=== PATIENT | female | born 1960 | race Hispanic/Latino ===

== ENCOUNTER 2017-01-07 07:15 | Day surgery (SDC) | payer OTHER ==
[2015-08-17 10:20] VITALS: BMI 23.8
[2017-01-07] MEDS ORDERED: Lactated Ringer's 500 ML IV ONE (08:01)
[2017-01-07 08:16] VITALS: TEMP 97; O2SAT 100
[2017-01-07] MEDS ORDERED: Propofol 10 mg/ml Inj (20 ML) ONE (08:53)
[2017-01-07] MEDS ORDERED: Lidocaine 2% MPF (5 ml) Inj ONE (08:54)
[2017-01-07 10:36] VITALS: BP 110/68; PULSE 55; RESP 17
== END 2017-01-07 11:13 | disposition home or self-care (01) ==
LOC: H.ENDO 07:15
PROVIDERS: ATTEND Internal Medicine Gastroenterology
DX: Z12.11 Encounter for screening for malignant neoplasm of colon (principal); E03.9 Hypothyroidism, unspecified
CPT/HCPCS: 45378; J2704; J7120

== ENCOUNTER 2018-05-20 15:24 | Inpatient (IN) | payer MEDICAID ==
[2018-05-20 15:24] VITALS: BMI 23.8
[2018-05-20] MEDS ORDERED: Sodium Chloride 0.9% 1,000 ML IV STA (16:23)
[2018-05-20 17:19] LABS: SQUAMOUS EPITHIAL < 1 /hpf (0-5); URINE BACTERIA RARE (<OCC); URINE BILIRUBIN NEGATIVE (NEGATIVE); URINE BLOOD NEGATIVE (NEGATIVE); URINE CALCIUM OXALATE CRYSTALS OCC /hpf (<OCC); URINE CLARITY SLIGHTY-CLOUDY (Clear); URINE COLOR AMBER (YELLOW); URINE GLUCOSE (UA) NEG (NEGATIVE); URINE HYALINE CAST 0-2 /hpf (0-2); URINE LEUKOCYTE ESTERASE NEG Leu/uL (Negative); URINE PROTEIN 100 mg/dL (NEGATIVE)
[2018-05-20 17:24] LABS: ALB/GLOB RATIO 1.2 (1.0-2.1); ALBUMIN 4.3 g/dL (3.5-5.0); BLOOD UREA NITROGEN 12 mg/dl (7-17); CALCIUM 9.6 mg/dL (8.4-10.2); GFR NON-AFRICAN AMERICAN > 60; LIPASE 26 U/L (23-300)
[2018-05-20 17:26] LABS: ALT/SGPT 9 U/L (9-52); AST/SGOT 44 U/L (14-36)
[2018-05-20] MEDS ORDERED: Iohexol 240 (50 ml) PO ONE (17:33)
[2018-05-20 17:41] LABS: PARTIAL THROMBOPLASTIN TIME 26.7 Seconds (25.6-37.1)
[2018-05-20 17:42] LABS: INR 1.1; PROTHROMBIN TIME 12.4 Seconds (9.8-13.1)
[2018-05-20] MEDS ORDERED: Iohexol 240 (50 ml) ONE (17:42)
[2018-05-20 18:12] LABS: BASO % 0.4 % (0.0-2.0); EOS % 0.1 % (0.0-4.0); HEMOGLOBIN 11.8 g/dL (12.0-16.0); LYMPH # 1.1 K/uL (1.0-4.3); LYMPH % 9.5 % (20.0-40.0); MEAN CELL VOLUME 95.3 fl (81.0-99.0); MEAN CORPUSCULAR HEMOGLOBIN 31.1 pg (27.0-31.0); MEAN CORPUSCULAR HGB CONC 32.6 g/dL (33.0-37.0); MEAN PLATELET VOLUME 10.9 fl (7.2-11.7); MONO # 0.7 K/uL (0.0-0.8); MONO % 6.4 % (0.0-10.0); NEUT # 9.6 K/uL (1.8-7.0); NEUT % 83.6 % (50.0-75.0); NRBC % 0.1 % (0.0-0.0); PLATELET COUNT 193 K/uL (130-400); RED CELL DISTRIBUTION WIDTH 13.6 % (11.5-14.5); WHITE BLOOD COUNT 11.5 K/uL (4.8-10.8)
[2018-05-20 19:13] LABS: BANDS 3 % (0-2); LYMPHOCYTE 10 % (20-50); MONOCYTE 7 % (0-10); NEUTROPHIL 80 % (42-75); TOTAL CELLS COUNTED 100
[2018-05-20 19:14] LABS: ANISOCYTOSIS MODERATE; OVALOCYTES SLIGHT; PLATELET ESTIMATE NORMAL (NORMAL); POIKILOCYTOSIS SLIGHT; TOXIC GRANULATION PRESENT
[2018-05-20] MEDS ORDERED: Sodium Chloride 0.9% 50 ML IV ONE (19:57)
[2018-05-20] MEDS ORDERED: Iohexol 300 100 ML IJ ONE (19:57)
--- NOTE | 2018-05-20 21:36 | ED PDOC ---
- Laboratory Results Result Diagrams: 05/20/18 17:00 05/20/18 17:00 Lab Results: PT 12.4 Seconds (9.8-13.1) 05/20/18 17:00 INR 1.1 05/20/18 17:00 APTT 26.7 Seconds (25.6-37.1) 05/20/18 17:00 Troponin I 0.0120 ng/mL (0.00-0.120) 05/20/18 17:00 Total Bilirubin 1.2 mg/dl (0.2-1.3) 05/20/18 17:00 AST 44 U/L (14-36) H 05/20/18 17:00 ALT 9 U/L (9-52) D 05/20/18 17:00 Alkaline Phosphatase 77 U/L (38-126) 05/20/18 17:00 Total Protein 8.0 G/DL (6.3-8.2) 05/20/18 17:00 Albumin 4.3 g/dL (3.5-5.0) 05/20/18 17:00 Globulin 3.6 gm/dL (2.2-3.9) 05/20/18 17:00 Albumin/Globulin Ratio 1.2 (1.0-2.1) 05/20/18 17:00 Lipase 26 U/L (23-300) 05/20/18 17:00 Urine Color [place] (YELLOW) 05/20/18 16:57 Urine Clarity Slighty-cloudy (Clear) 05/20/18 16:57 Urine pH 5.0 (5.0-8.0) 05/20/18 16:57 Ur Specific [place] 1.026 (1.003-1.030) 05/20/18 16:57 Urine Protein 100 mg/dL (NEGATIVE) 05/20/18 16:57 Urine Glucose (UA) Neg mg/dL (NEGATIVE) 05/20/18 16:57 Urine Ketones 20 mg/dL (NEGATIVE) 05/20/18 16:57 Urine Blood Negative (NEGATIVE) 05/20/18 16:57 Urine Nitrate Negative (NEGATIVE) 05/20/18 16:57 Urine Bilirubin Negative (NEGATIVE) 05/20/18 16:57 Urine Urobilinogen 2.0 mg/dL (0.2-1.0) H 05/20/18 16:57 Ur Leukocyte Esterase Neg [place]/uL (Negative) 05/20/18 16:57 Urine RBC (Auto) 5 /hpf (0-3) H 05/20/18 16:57 Urine Microscopic WBC 3 /hpf (0-5) 05/20/18 16:57 Ur Squamous Epith Cells < 1 /hpf (0-5) 05/20/18 16:57 Calcium Oxalate Crystal Occ /hpf (<OCC) H 05/20/18 16:57 Urine Bacteria Rare (<OCC) 05/20/18 16:57 Hyaline Casts 0-2 /hpf (0-2) 05/20/18 16:57 - ECG O2 Sat by Pulse Oximetry: 100 - Radiology X-Ray: Viewed By Ri X-Ray Interpretation: No Acute Disease - Progress ED Course And Treament: Case endorsed to marketing copywriter from Dhiraj FERNANDEZ pending CT EXAM: CT Abdomen and Pelvis with IV contrast CLINICAL HISTORY: Abd pain TECHNIQUE: Axial computed tomography images of the abdomen and pelvis with oral and intravenous contrast. CONTRAST: With intravenous contrast. COMPARISON: None provided. FINDINGS: LUNG BASES: The lung bases appear clear. No pleural effusions are seen. LIVER: Unremarkable. GALLBLADDER AND BILE DUCTS: Gallbladder wall is thickened and irregular with pericholecystic fluid/edema is noted thought compatible with acute acalculous cholecystitis. No radioopaque gallstones are seen. No biliary ductal dilatation is evident. PANCREAS: Unremarkable. SPLEEN: Unremarkable. ADRENAL GLANDS: Unremarkable. KIDNEYS, URETERS, AND BLADDER: The kidneys appear within normal limits. There is no hydronephrosis or hydroureter. No urinary calculi are seen. The urinary bladder appeared normal in size and configuration. STOMACH AND BOWEL: Unremarkable appearance of the stomach. No evidence of bowel obstruction. No evidence suggesting colitis. There does appear to be some mucosal wall thickening involving all small bowel segments and especially distal ileum compatible with enteritis. APPENDIX: No evidence of acute appendicitis on CT examination. PERITONEUM: No free fluid. No free air. LYMPH NODES: No lymphadenopathy is evident. REPRODUCTIVE: Unremarkable as visualized. VASCULATURE: No evidence of abdominal aortic aneurysm. BONES: No aggressive appearing osseous lesion. No acute osseous pathology evident. IMPRESSION: 1. Findings compatible with acute acalculous cholecystitis. 2. Enteritis as above. IV zosyn dose ordered RUQ u/s ordered EXAM: US Abdomen, Right Upper Quadrant. CLINICAL HISTORY: Abdominal pain TECHNIQUE: Right upper quadrant sonography performed with image documentation. COMPARISON: None provided. FINDINGS: LIVER: The liver is normal in size and echogenicity. GALLBLADDER: The gallbladder demonstrates gallstones and wall thickening measuring 0.9 cm. There is also pericholecystic fluid. However, sonographic Fang sign is neg ative. Please correlate clinically and if indicated this could be further evaluated with HIDA scan. COMMON BILE DUCT: Common bile duct is normal in caliber measuring 0.3-0.4 cm. PANCREAS: The pancreas has a normal sonographic appearance. RIGHT KIDNEY: The right kidney has a normal sonographic appearance. MISCELLANEOUS: The visualized aorta and IVC appear unremarkable. IMPRESSION: 1. The gallbladder demonstrates gallstones and wall thickening measuring 0.9 cm. There is also pericholecystic fluid. However, sonographic Fang sign is negative. Please correlate clinically and if indicated this could be further evaluated with HIDA scan. 2. Additional and incidental findings as described, please see comments Patient evaluated by Dr. Narvaez, surgical dressing maker on-call Case discussed with Dr. Salas, Hospitalist on-call, for admission Disposition - Clinical Impression Clinical Impression: Acute cholecystitis - POA Present On Arrival: None - Disposition Disposition: Admitted as In-Patient Disposition Time: 00:00 Condition: FAIR Forms: [facility] (Kosovan)
[2018-05-20] MEDS ORDERED: Piperacillin/Tazobact 3.375 GM in Sodium Chloride 0.9% 100 ML IV ONE (21:48)
--- NOTE | 2018-05-20 21:59 | CP.PCM.CON ---
History of Present Illness - History of Present Illness History of Present Illness: 58F with past medical history of hypothyroidism presents to [facility] ED after being referred by primary physician to r/o appendicitis. Patient states pain began around Friday after having dinner. States her pain was localized to right side of abdomen, with pain being worse along right upper quadrant. On following days patient states she had poor appetite and was afraid of eating because she did not want to exacerbate her abdominal pain. She reports having a Tmax of 100.5F which was measured at home for the past two days. She reports bloating, nausea, and constipation. Denies chest pain, shortness of breath. PMH:as stated above PSH:laparoscopic tubal ligation? All: NKDA Soc Hx: Denies illicit drugs use. Denies smoking. EtOH consumption during social events. Review of Systems - Review of Systems Review of Systems: 10 pt ROS unremarkable except as stated in HPI Past Patient History - Past Medical History & Family History Past Medical History?: Yes - Past Social History Smoking Status: Never Smoked - CARDIAC Hx Cardiac Disorders: No - PULMONARY Hx Respiratory Disorders: No - NEUROLOGICAL Hx Neurological Disorder: No - HEENT Hx HEENT Problems: No - RENAL Hx Chronic Kidney Disease: No - ENDOCRINE/METABOLIC Hx Endocrine Disorders: Yes Hx Hypothyroidism: Yes - HEMATOLOGICAL/ONCOLOGICAL Hx Blood Disorders: No - INTEGUMENTARY Hx Dermatological Problems: No - MUSCULOSKELETAL/RHEUMATOLOGICAL Hx Musculoskeletal Disorders: No - GASTROINTESTINAL Hx Gastrointestinal Disorders: No - GENITOURINARY/GYNECOLOGICAL Hx Genitourinary Disorders: No - PSYCHIATRIC Hx Psychophysiologic Disorder: No Hx Emotional Abuse: No Hx Physical Abuse: No Hx Substance Use: No - SURGICAL HISTORY Hx Surgeries: Yes Hx Breast Biopsy: Yes Hx Cholecystectomy: Yes Other/Comment: ÁLVARO. EARS SURGERY - ANESTHESIA Hx Anesthesia: Yes Hx Anesthesia Reactions: No Hx Malignant Hyperthermia: No Meds Allergies/Adverse Reactions: Allergies Allergy/AdvReac Type Severity Reaction Status Date / Time No Known Allergies Allergy Verified 05/20/18 15:41 - Medications Medications: Current Medications Piperacillin Sod/Tazobactam (Sod 3.375 gm/ Sodium Chloride) 100 mls @ 100 mls/hr IV ONCE ONE; Protocol Stop: 05/20/18 22:47 Physical Exam - Constitutional Appears: No Acute Distress - Head Exam Head Exam: NORMOCEPHALIC - Eye Exam Eye Exam: EOMI, Normal appearance. absent: Scleral icterus - ENT Exam ENT Exam: Mucous Membranes Moist - Respiratory Exam Respiratory Exam: NORMAL BREATHING PATTERN - Cardiovascular Exam Cardiovascular Exam: +S1, +S2 - GI/Abdominal Exam GI & Abdominal Exam: Distended, Soft, Tenderness. absent: Firm, Guarding, Rebound Additional comments: mild distension RUQ tenderness able to palpate gallbladder - Neurological Exam Neurological exam: Alert, Oriented x3 - Psychiatric Exam Psychiatric exam: Normal Mood - Skin Skin Exam: Dry, Intact, Warm Results - Vital Signs Recent Vital Signs: Last Vital Signs Temp 99.7 F H 05/20/18 15:41 Pulse 82 05/20/18 15:41 Resp 16 05/20/18 15:41 BP 119/74 05/20/18 15:41 Pulse Ox 100 05/20/18 21:50 - Labs Result Diagrams: 05/20/18 17:00 05/20/18 17:00 Labs: Laboratory Results - last 24 hr 05/20/18 05/20/18 05/20/18 16:57 17:00 17:00 WBC 11.5 H D RBC 3.80 Hgb 11.8 L Hct 36.3 MCV 95.3 D MCH 31.1 H MCHC 32.6 L RDW 13.6 Plt Count 193 MPV 10.9 Neut % (Auto) 83.6 H Lymph % (Auto) 9.5 L [place] % (Auto) 6.4 Eos % (Auto) 0.1 Baso % (Auto) 0.4 Neut # (Auto) 9.6 H Lymph # (Auto) 1.1 [place] # (Auto) 0.7 Eos # (Auto) 0.0 Baso # (Auto) 0.0 Neutrophils % (Manual) 80 H Band Neutrophils % 3 H Lymphocytes % (Manual) 10 L Monocytes % (Manual) 7 Toxic Granulation Present Platelet Estimate Normal Poikilocytosis (manual Slight Anisocytosis (manual) Moderate Macrocytosis (manual) Slight Ovalocytes Slight PT INR APTT Sodium 138 Potassium 4.9 Chloride 97 L Carbon Dioxide 25 Anion Gap 21 H BUN 12 Creatinine 0.8 Est GFR ( Amer) > 60 Est GFR (Non-Af Amer) > 60 Random Glucose 87 Calcium 9.6 Total Bilirubin 1.2 AST 44 H ALT 9 D Alkaline Phosphatase 77 Troponin I 0.0120 Total Protein 8.0 Albumin 4.3 Globulin 3.6 Albumin/Globulin Ratio 1.2 Lipase 26 Urine Color [place] Urine Clarity Slighty-cloudy Urine pH 5.0 Ur Specific [place] 1.026 Urine Protein 100 Urine Glucose (UA) Neg Urine Ketones 20 Urine Blood Negative Urine Nitrate Negative Urine Bilirubin Negative Urine Urobilinogen 2.0 H Ur Leukocyte Esterase Neg Urine RBC (Auto) 5 H Urine Microscopic WBC 3 Ur Squamous Epith Cells < 1 Calcium Oxalate Crystal Occ H Urine Bacteria Rare Hyaline Casts 0-2 Influenza Typ A,B (EIA) Blood Type Antibody Screen BBK History Checked 05/20/18 05/20/18 05/20/18 17:00 17:00 17:00 WBC RBC Hgb Hct MCV MCH MCHC RDW Plt Count MPV Neut % (Auto) Lymph % (Auto) [place] % (Auto) Eos % (Auto) Baso % (Auto) Neut # (Auto) Lymph # (Auto) [place] # (Auto) Eos # (Auto) Baso # (Auto) Neutrophils % (Manual) Band Neutrophils % Lymphocytes % (Manual) Monocytes % (Manual) Toxic Granulation Platelet Estimate Poikilocytosis (manual Anisocytosis (manual) Macrocytosis (manual) Ovalocytes PT 12.4 INR 1.1 APTT 26.7 Sodium Potassium Chloride Carbon Dioxide Anion Gap BUN Creatinine Est GFR ( Amer) Est GFR (Non-Af Amer) Random Glucose Calcium Total Bilirubin AST ALT Alkaline Phosphatase Troponin I Total Protein Albumin Globulin Albumin/Globulin Ratio Lipase Urine Color Urine Clarity Urine pH Ur Specific [place] Urine Protein Urine Glucose (UA) Urine Ketones Urine Blood Urine Nitrate Urine Bilirubin Urine Urobilinogen Ur Leukocyte Esterase Urine RBC (Auto) Urine Microscopic WBC Ur Squamous Epith Cells Calcium Oxalate Crystal Urine Bacteria Hyaline Casts Influenza Typ A,B (EIA) Negative for flu a/b Blood Type A POSITIVE Antibody Screen Negative BBK History Checked No verified bt Assessment & Plan - Assessment and Plan (Free Text) Assessment: 58F with cholecystitis Plan: NPO IVF ABx Recommend Abd U/S AM labs Further recommendations to be made pending U/S imaging Further recs per Dr. Emmett Ceja [id number]
[2018-05-20] MEDS ORDERED: Piperacillin/Tazobact 3.375 gm Inj IVPB ONE (22:34)
[2018-05-20] MEDS: Lactated Ringer's 1,000 ML IV SCH (22:44)
--- NOTE | 2018-05-21 01:15 | CP.PCM.HP ---
<Shira Johnston - Last Filed: 05/21/18 04:07> History of Present Illness - History of Present Illness History of Present Illness: 58 yo F with medical history hypothyroidism (has been off medications x6 months due to insurance issues); admitted due to cholecystitis. Relates that since Friday (3 days prior to presentation), she started experiencing right sided abdominal pain, and had 3 bouts of NBNB vomiting from Friday 2/ night into Thursday 05/18, but thought it was because she ate too fast on Friday due to being hungry. Since Friday morning, no further vomiting, but overall feels lack of energy, decreased appetite, nausea, and right sided abd pain, more RUQ radiating to R shoulder than RLQ. States that pain is constant, sharp, 5/10, but thinks she has a high pain tolerance. Took temperature at home, states that since Friday it has ranged form 99-100.5 F. She waited for apt at [facility] today (went to get refill of her levothyroxine and to re-establish care); had fever 100.4 in office, abd tenderness on exam, and as per pt was recommended to come to ED for further eval. Denies dizziness, chest pain, difficulty breathing, dysuria, diarrhea/constipation. PMD: [facility] Past Med hx: hypothyroidism Past Surg hx: lumpectomy (benign mass as per pt 1983), laparascopic BTL 1980, right foot surgery?, cosmetic ear surg as a child Social hx: former light smoker ages [age] (1-2 cig/day), occasional alcohol on special occ, denies current drug use (admits to experimenting with various drugs in her 20s, denies drug use in past 20 yrs) Family hx: mother w/ arrythmia Allergies: nkda Meds: was on levothyroxine 50 mcg; pt states she has been off since 01/2018; as per eCW last refill x1 mo was 09/2017 In ED: Vitals: T 99.7, BP 119/74, HR 82, RR 16, O2 sat 100 on room air Labs: CBC: leukocytosis 11.5, Hgb 11.8, Hct 36.3, PLT 193 PT 12.4, INR 1.1 CMP: grossly unremarkable; AST 44 Troponin neg Lipase 26 UA: 2.0 urobili, 5 RBC, occ oxalae crystal Blood/urine cultures collected Received: Zofran 4 mg IVP x1 Zosyn 3.375 mg IV x1 1L NS bolus Pepcid 20 mg IVP Imaging: CT abd/Pelvis w/ IV contrast had findings compatible with acute acalculous cholecystitis; however abdominal u/s showed gallstones and wall thickening measuring 0.9 cm as well as pericholecystic fluid. Admitted to [facility]. Present on Admission - Present on Admission Any Indicators Present on Admission: No Review of Systems - Review of Systems All systems: reviewed and no additional remarkable complaints except - Constitutional Constitutional: Fever, Weakness. absent: Headache - Cardiovascular Cardiovascular: absent: Chest Pain - Respiratory Respiratory: absent: Cough, Dyspnea - Gastrointestinal Gastrointestinal: Abdominal Pain, Nausea, Vomiting. absent: Diarrhea - Genitourinary Genitourinary: absent: Difficulty Urinating, Dysuria - Musculoskeletal Musculoskeletal: absent: Numbness Past Patient History - Past Medical History & Family History Past Medical History?: Yes - Past Social History Smoking Status: Former Smoker Alcohol: Occasional Drugs: Denies - CARDIAC Hx Cardiac Disorders: No - PULMONARY Hx Respiratory Disorders: No - NEUROLOGICAL Hx Neurological Disorder: No - HEENT Hx HEENT Problems: No - RENAL Hx Chronic Kidney Disease: No - ENDOCRINE/METABOLIC Hx Endocrine Disorders: Yes Hx Hypothyroidism: Yes - HEMATOLOGICAL/ONCOLOGICAL Hx Blood Disorders: No - INTEGUMENTARY Hx Dermatological Problems: No - MUSCULOSKELETAL/RHEUMATOLOGICAL Hx Musculoskeletal Disorders: No - GASTROINTESTINAL Hx Gastrointestinal Disorders: No - GENITOURINARY/GYNECOLOGICAL Hx Genitourinary Disorders: No - PSYCHIATRIC Hx Psychophysiologic Disorder: No Hx Emotional Abuse: No Hx Physical Abuse: No Hx Substance Use: No - SURGICAL HISTORY Hx Surgeries: Yes Hx Breast Biopsy: Yes Other/Comment: BTL; cosmetic ear surg as a child - ANESTHESIA Hx Anesthesia: Yes Hx Anesthesia Reactions: No Hx Malignant Hyperthermia: No Meds Allergies/Adverse Reactions: Allergies Allergy/AdvReac Type Severity Reaction Status Date / Time No Known Allergies Allergy Verified 05/20/18 15:41 Physical Exam - Constitutional Appears: No Acute Distress, Younger Than Stated Age - Head Exam Head Exam: NORMAL INSPECTION - Eye Exam Eye Exam: Normal appearance. absent: Scleral icterus - ENT Exam ENT Exam: Mucous Membranes Moist - Neck Exam Neck exam: Positive for: Full Rom - Respiratory Exam Respiratory Exam: Clear to Auscultation Bilateral, NORMAL BREATHING PATTERN. absent: Respiratory Distress - Cardiovascular Exam Cardiovascular Exam: REGULAR RHYTHM, +S1, +S2 - GI/Abdominal Exam GI & Abdominal Exam: Normal Bowel Sounds, Soft, Tenderness (RUQ with minimal palpation). absent: Rigid - Extremities Exam Extremities exam: Positive for: normal inspection. Negative for: calf tenderness, pedal edema - Neurological Exam Neurological exam: Alert, Oriented x3 - Psychiatric Exam Psychiatric exam: Normal Mood - Skin Skin Exam: Dry, Warm Additional comments: multiple tattoos Results - Vital Signs Recent Vital Signs: Last Vital Signs Temp 98.9 F 05/21/18 00:29 Pulse 75 05/21/18 00:29 Resp 19 05/21/18 00:29 BP 140/65 05/21/18 00:29 Pulse Ox 100 05/21/18 00:49 - Labs Result Diagrams: 05/20/18 17:00 05/20/18 17:00 Labs: Laboratory Results - last 24 hr 05/20/18 05/20/18 05/20/18 16:57 17:00 17:00 WBC 11.5 H D RBC 3.80 Hgb 11.8 L Hct 36.3 MCV 95.3 D MCH 31.1 H MCHC 32.6 L RDW 13.6 Plt Count 193 MPV 10.9 Neut % (Auto) 83.6 H Lymph % (Auto) 9.5 L Dale % (Auto) 6.4 Eos % (Auto) 0.1 Baso % (Auto) 0.4 Neut # (Auto) 9.6 H Lymph # (Auto) 1.1 Dale # (Auto) 0.7 Eos # (Auto) 0.0 Baso # (Auto) 0.0 Neutrophils % (Manual) 80 H Band Neutrophils % 3 H Lymphocytes % (Manual) 10 L Monocytes % (Manual) 7 Toxic Granulation Present Platelet Estimate Normal Poikilocytosis (manual Slight Anisocytosis (manual) Moderate Macrocytosis (manual) Slight Ovalocytes Slight PT INR APTT Sodium 138 Potassium 4.9 Chloride 97 L Carbon Dioxide 25 Anion Gap 21 H BUN 12 Creatinine 0.8 Est GFR ( Amer) > 60 Est GFR (Non-Af Amer) > 60 Random Glucose 87 Calcium 9.6 Total Bilirubin 1.2 AST 44 H ALT 9 D Alkaline Phosphatase 77 Troponin I 0.0120 Total Protein 8.0 Albumin 4.3 Globulin 3.6 Albumin/Globulin Ratio 1.2 Lipase 26 Urine Color Katy Urine Clarity Slighty-cloudy Urine pH 5.0 Ur Specific [place] 1.026 Urine Protein 100 Urine Glucose (UA) Neg Urine Ketones 20 Urine Blood Negative Urine Nitrate Negative Urine Bilirubin Negative Urine Urobilinogen 2.0 H Ur Leukocyte Esterase Neg Urine RBC (Auto) 5 H Urine Microscopic WBC 3 Ur Squamous Epith Cells < 1 Calcium Oxalate Crystal Occ H Urine Bacteria Rare Hyaline Casts 0-2 Influenza Typ A,B (EIA) Blood Type Blood Type Confirm Antibody Screen BBK History Checked 05/20/18 05/20/18 05/20/18 17:00 17:00 17:00 WBC RBC Hgb Hct MCV MCH MCHC RDW Plt Count MPV Neut % (Auto) Lymph % (Auto) Dale % (Auto) Eos % (Auto) Baso % (Auto) Neut # (Auto) Lymph # (Auto) Dale # (Auto) Eos # (Auto) Baso # (Auto) Neutrophils % (Manual) Band Neutrophils % Lymphocytes % (Manual) Monocytes % (Manual) Toxic Granulation Platelet Estimate Poikilocytosis (manual Anisocytosis (manual) Macrocytosis (manual) Ovalocytes PT 12.4 INR 1.1 APTT 26.7 Sodium Potassium Chloride Carbon Dioxide Anion Gap BUN Creatinine Est GFR ( Amer) Est GFR (Non-Af Amer) Random Glucose Calcium Total Bilirubin AST ALT Alkaline Phosphatase Troponin I Total Protein Albumin Globulin Albumin/Globulin Ratio Lipase Urine Color Urine Clarity Urine pH Ur Specific [place] Urine Protein Urine Glucose (UA) Urine Ketones Urine Blood Urine Nitrate Urine Bilirubin Urine Urobilinogen Ur Leukocyte Esterase Urine RBC (Auto) Urine Microscopic WBC Ur Squamous Epith Cells Calcium Oxalate Crystal Urine Bacteria Hyaline Casts Influenza Typ A,B (EIA) Negative for flu a/b Blood Type A POSITIVE Blood Type Confirm Antibody Screen Negative BBK History Checked No verified bt 05/20/18 22:27 WBC RBC Hgb Hct MCV MCH MCHC RDW Plt Count MPV Neut % (Auto) Lymph % (Auto) Dale % (Auto) Eos % (Auto) Baso % (Auto) Neut # (Auto) Lymph # (Auto) Dale # (Auto) Eos # (Auto) Baso # (Auto) Neutrophils % (Manual) Band Neutrophils % Lymphocytes % (Manual) Monocytes % (Manual) Toxic Granulation Platelet Estimate Poikilocytosis (manual Anisocytosis (manual) Macrocytosis (manual) Ovalocytes PT INR APTT Sodium Potassium Chloride Carbon Dioxide Anion Gap BUN Creatinine Est GFR ( Amer) Est GFR (Non-Af Amer) Random Glucose Calcium Total Bilirubin AST ALT Alkaline Phosphatase Troponin I Total Protein Albumin Globulin Albumin/Globulin Ratio Lipase Urine Color Urine Clarity Urine pH Ur Specific [place] Urine Protein Urine Glucose (UA) Urine Ketones Urine Blood Urine Nitrate Urine Bilirubin Urine Urobilinogen Ur Leukocyte Esterase Urine RBC (Auto) Urine Microscopic WBC Ur Squamous Epith Cells Calcium Oxalate Crystal Urine Bacteria Hyaline Casts Influenza Typ A,B (EIA) Blood Type Blood Type Confirm A POSITIVE Antibody Screen BBK History Checked Assessment & Plan - Assessment and Plan (Free Text) Assessment: 58 yo F with hypothyroidism; admitted for RUQ pain secondary to acute cholecystitis. Plan: Abdominal pain, likely secondary to acute cholecystitis - Surgery consult - Dr. Christine; further recs pending/appreciated - IVF, LR @ 100 ml/hr - Zosyn 3.375 mg Q6 hrs; 1 dose in ED - Pain control scale w/ morphine, 1 mg q4hs prn mild pain, 2 mg q4hrs prn mod pain, 4 mg q6hrs prn severe pain - Zofran 4 mg IVP Q6 for nausea - CBC, CMP in am - F/u blood, urine cultures Hypothyrodism - Hold meds for now; pt has been off meds more than 6 mo Diet - NPO DVT prophylaxis - SCDs for now Pt seen/discussed w/ Dr. Salas. <Rashaun Salas - Last Filed: 05/21/18 04:48> Results - Vital Signs Recent Vital Signs: Last Vital Signs Temp 98.4 F 05/21/18 02:24 Pulse 75 05/21/18 02:24 Resp 19 05/21/18 02:29 BP 146/77 05/21/18 02:24 Pulse Ox 95 05/21/18 02:29 - Labs Result Diagrams: 05/20/18 17:00 05/20/18 17:00 Labs: Laboratory Results - last 24 hr 05/20/18 05/20/18 05/20/18 16:57 17:00 17:00 WBC 11.5 H D RBC 3.80 Hgb 11.8 L Hct 36.3 MCV 95.3 D MCH 31.1 H MCHC 32.6 L RDW 13.6 Plt Count 193 MPV 10.9 Neut % (Auto) 83.6 H Lymph % (Auto) 9.5 L Dale % (Auto) 6.4 Eos % (Auto) 0.1 Baso % (Auto) 0.4 Neut # (Auto) 9.6 H Lymph # (Auto) 1.1 Dale # (Auto) 0.7 Eos # (Auto) 0.0 Baso # (Auto) 0.0 Neutrophils % (Manual) 80 H Band Neutrophils % 3 H Lymphocytes % (Manual) 10 L Monocytes % (Manual) 7 Toxic Granulation Present Platelet Estimate Normal Poikilocytosis (manual Slight Anisocytosis (manual) Moderate Macrocytosis (manual) Slight Ovalocytes Slight PT INR APTT Sodium 138 Potassium 4.9 Chloride 97 L Carbon Dioxide 25 Anion Gap 21 H BUN 12 Creatinine 0.8 Est GFR ( Amer) > 60 Est GFR (Non-Af Amer) > 60 Random Glucose 87 Calcium 9.6 Total Bilirubin 1.2 AST 44 H ALT 9 D Alkaline Phosphatase 77 Troponin I 0.0120 Total Protein 8.0 Albumin 4.3 Globulin 3.6 Albumin/Globulin Ratio 1.2 Lipase 26 Urine Color Katy Urine Clarity Slighty-cloudy Urine pH 5.0 Ur Specific [place] 1.026 Urine Protein 100 Urine Glucose (UA) Neg Urine Ketones 20 Urine Blood Negative Urine Nitrate Negative Urine Bilirubin Negative Urine Urobilinogen 2.0 H Ur Leukocyte Esterase Neg Urine RBC (Auto) 5 H Urine Microscopic WBC 3 Ur Squamous Epith Cells < 1 Calcium Oxalate Crystal Occ H Urine Bacteria Rare Hyaline Casts 0-2 Influenza Typ A,B (EIA) Blood Type Blood Type Confirm Antibody Screen BBK History Checked 05/20/18 05/20/18 05/20/18 17:00 17:00 17:00 WBC RBC Hgb Hct MCV MCH MCHC RDW Plt Count MPV Neut % (Auto) Lymph % (Auto) Dale % (Auto) Eos % (Auto) Baso % (Auto) Neut # (Auto) Lymph # (Auto) Dale # (Auto) Eos # (Auto) Baso # (Auto) Neutrophils % (Manual) Band Neutrophils % Lymphocytes % (Manual) Monocytes % (Manual) Toxic Granulation Platelet Estimate Poikilocytosis (manual Anisocytosis (manual) Macrocytosis (manual) Ovalocytes PT 12.4 INR 1.1 APTT 26.7 Sodium Potassium Chloride Carbon Dioxide Anion Gap BUN Creatinine Est GFR ( Amer) Est GFR (Non-Af Amer) Random Glucose Calcium Total Bilirubin AST ALT Alkaline Phosphatase Troponin I Total Protein Albumin Globulin Albumin/Globulin Ratio Lipase Urine Color Urine Clarity Urine pH Ur Specific [place] Urine Protein Urine Glucose (UA) Urine Ketones Urine Blood Urine Nitrate Urine Bilirubin Urine Urobilinogen Ur Leukocyte Esterase Urine RBC (Auto) Urine Microscopic WBC Ur Squamous Epith Cells Calcium Oxalate Crystal Urine Bacteria Hyaline Casts Influenza Typ A,B (EIA) Negative for flu a/b Blood Type A POSITIVE Blood Type Confirm Antibody Screen Negative BBK History Checked No verified bt 05/20/18 22:27 WBC RBC Hgb Hct MCV MCH MCHC RDW Plt Count MPV Neut % (Auto) Lymph % (Auto) Dale % (Auto) Eos % (Auto) Baso % (Auto) Neut # (Auto) Lymph # (Auto) Dale # (Auto) Eos # (Auto) Baso # (Auto) Neutrophils % (Manual) Band Neutrophils % Lymphocytes % (Manual) Monocytes % (Manual) Toxic Granulation Platelet Estimate Poikilocytosis (manual Anisocytosis (manual) Macrocytosis (manual) Ovalocytes PT INR APTT Sodium Potassium Chloride Carbon Dioxide Anion Gap BUN Creatinine Est GFR ( Amer) Est GFR (Non-Af Amer) Random Glucose Calcium Total Bilirubin AST ALT Alkaline Phosphatase Troponin I Total Protein Albumin Globulin Albumin/Globulin Ratio Lipase Urine Color Urine Clarity Urine pH Ur Specific [place] Urine Protein Urine Glucose (UA) Urine Ketones Urine Blood Urine Nitrate Urine Bilirubin Urine Urobilinogen Ur Leukocyte Esterase Urine RBC (Auto) Urine Microscopic WBC Ur Squamous Epith Cells Calcium Oxalate Crystal Urine Bacteria Hyaline Casts Influenza Typ A,B (EIA) Blood Type Blood Type Confirm A POSITIVE Antibody Screen BBK History Checked Attending/Attestation - Attestation I have personally seen and examined this patient.: Yes I have fully participated in the care of the patient.: Yes I have reviewed all pertinent clinical information: Yes Notes (Text): 05/21/18 04:41 I saw, examined and discussed this patient with Dr Johnston. I agree with the assessment and plan outlined. This is a 58 years old female who comes with Right upper quadrant abdominal pain with nausea and a leukocytosis, with CT abdomen/pelvis showing signs of Acalcalous Cholecystitis and Enteritis The patient is started on Zosyn with pain medication and IV Fluids. Surgery is consulted. Nothing by mouth because of possible surgical intervention. Rashaun Salas MD
[2018-05-21] MEDS ORDERED: Morphine 4 MG/ML VIAL IVP PRN ×3 (02:15)
[2018-05-21] MEDS: Piperacillin/Tazobact 3.375 GM in Sodium Chloride 0.9% 100 ML IVPB SCH ×4 (03:58→21:01)
[2018-05-21 06:26] LABS: BASO % 0.5 % (0.0-2.0); EOS % 0.3 % (0.0-4.0); HEMOGLOBIN 10.6 g/dL (12.0-16.0); LYMPH # 1.4 K/uL (1.0-4.3); LYMPH % 13.9 % (20.0-40.0); MEAN CELL VOLUME 94.4 fl (81.0-99.0); MEAN CORPUSCULAR HEMOGLOBIN 31.5 pg (27.0-31.0); MEAN CORPUSCULAR HGB CONC 33.4 g/dL (33.0-37.0); MEAN PLATELET VOLUME 10.6 fl (7.2-11.7); MONO # 0.8 K/uL (0.0-0.8); MONO % 8.3 % (0.0-10.0); NEUT # 7.7 K/uL (1.8-7.0); RBC 3.37 Mil/uL (3.80-5.20); RED CELL DISTRIBUTION WIDTH 13.6 % (11.5-14.5)
[2018-05-21 06:50] LABS: ALB/GLOB RATIO 1.1 (1.0-2.1); ALBUMIN 3.6 g/dL (3.5-5.0); ALT/SGPT 18 U/L (9-52); AST/SGOT 33 U/L (14-36); BLOOD UREA NITROGEN 10 mg/dl (7-17); CALCIUM 9.2 mg/dL (8.4-10.2); GFR NON-AFRICAN AMERICAN > 60
--- NOTE | 2018-05-21 07:24 | CP.PCM.PN ---
Subjective - Date & Time of Evaluation Date of Evaluation: 05/21/18 Time of Evaluation: 07:22 - Subjective Subjective: Surgery Progress note- Dr. Christine Patient seen and examined at bedside. Pain is moderately improved. + nausea, no vomiting. denies fevers, chills, chest pain. currently NPO for cholecystectomy during this hospital stay. Objective - Vital Signs/Intake and Output Vital Signs (last 24 hours): Temp Pulse Resp BP Pulse Ox 98.4 F 75 19 146/77 95 05/21/18 02:24 05/21/18 02:24 05/21/18 02:29 05/21/18 02:24 05/21/18 02:29 - Medications Medications: Current Medications Piperacillin Sod/Tazobactam (Sod 3.375 gm/ Sodium Chloride) 100 mls @ 100 mls/hr IVPB Q6 [facility]; Protocol Last Admin: 05/21/18 03:58 Dose: 100 mls/hr Lactated Ringer's (Lactated Ringer's) 1,000 mls @ 100 mls/hr IV .Q10H [facility] Last Admin: 05/20/18 22:44 Dose: 100 mls/hr Morphine Sulfate (Morphine) 1 mg IVP Q4 PRN PRN Reason: Pain, Mild (1-3) Morphine Sulfate (Morphine) 2 mg IVP Q4 PRN PRN Reason: Pain, moderate (4-7) Morphine Sulfate (Morphine) 4 mg IVP Q6 PRN PRN Reason: Pain, severe (8-10) Ondansetron HCl (Zofran Inj) 4 mg IVP Q6 PRN PRN Reason: Nausea/Vomiting - Labs Labs: 05/21/18 05:50 05/21/18 05:50 PT 12.4 Seconds (9.8-13.1) 05/20/18 17:00 INR 1.1 05/20/18 17:00 APTT 26.7 Seconds (25.6-37.1) 05/20/18 17:00 - Constitutional Appears: Non-toxic, No Acute Distress - Head Exam Head Exam: ATRAUMATIC - Eye Exam Eye Exam: EOMI. absent: Scleral icterus - ENT Exam ENT Exam: Mucous Membranes Moist - Respiratory Exam Respiratory Exam: Clear to Ausculation Bilateral. absent: Accessory Muscle Use, Chest Wall Tenderness - Cardiovascular Exam Cardiovascular Exam: REGULAR RHYTHM. absent: Bradycardia, Tachycardia - GI/Abdominal Exam GI & Abdominal Exam: Soft, Tenderness (tenderness RUQ), Normal Bowel Sounds. absent: Distended, Firm, Guarding, Rigid - Neurological Exam Neurological Exam: Alert, Awake, Oriented x3 - Psychiatric Exam Psychiatric exam: Normal Affect - Skin Skin Exam: Intact, Warm Assessment and Plan - Assessment and Plan (Free Text) Assessment: 58F w/ acute cholecystitis Plan: - will plan for OR tomorrow in AM for cholecystectomy - Clear liquid diet today - NPO @ [place] - IVF/Abx - anti-emetic and analgesia PRN - d/[facility]
[2018-05-21] MEDS: Lactated Ringer's 1,000 ML IV SCH ×2 (09:11→12:52)
--- NOTE | 2018-05-21 09:22 | CARD ---
APPROVED REPORT Date of service: 05/20/2018 EKG Measurement Heart [id number] <Conclusion> Normal sinus rhythm with sinus arrhythmia Nonspecific ST-T changes Abnormal ECG
[2018-05-21] MEDS: Levothyroxine 50 MCG TAB PO SCH (09:53)
[2018-05-21] MEDS ORDERED: [UNRECOGNIZED DRUG - REMARK] IM ONE (10:00)
--- NOTE | 2018-05-21 10:49 | CP.PCM.PN ---
<Sultan Diane - Last Filed: 05/21/18 11:25> Subjective - Date & Time of Evaluation Date of Evaluation: 05/21/18 Time of Evaluation: 10:05 - Subjective Subjective: Patient seen and examined this morning. Reports abdominal pain is controlled with pain medications. Denies any nausea, vomiting, fever or chills. Patient denies any hx of CAD or DMII. Patient quit smoking cigarettes >30 years ago. Former light smoker ages [age] (1-2 cig/day). Patient denies any chest pain, dyspnea or dyspnea on exertion. 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 She lives in [address] floor and takes stairs w/o any chest pain or dyspnea but does feel out of shape sometimes. Objective - Vital Signs/Intake and Output Vital Signs (last 24 hours): Temp Pulse Resp BP Pulse Ox 97.6 F 76 20 131/69 96 05/21/18 09:00 05/21/18 09:00 05/21/18 09:00 05/21/18 09:00 05/21/18 09:00 - Medications Medications: Current Medications Piperacillin Sod/Tazobactam (Sod 3.375 gm/ Sodium Chloride) 100 mls @ 100 mls/hr IVPB Q6 [facility]; Protocol Last Admin: 05/21/18 09:08 Dose: 100 mls/hr Lactated Ringer's (Lactated Ringer's) 1,000 mls @ 100 mls/hr IV .Q10H [facility] Last Admin: 05/21/18 09:11 Dose: Not Given Levothyroxine Sodium (Synthroid) 50 mcg PO DAILY@0630 [facility] Last Admin: 05/21/18 09:53 Dose: 50 mcg Morphine Sulfate (Morphine) 1 mg IVP Q4 PRN PRN Reason: Pain, Mild (1-3) Morphine Sulfate (Morphine) 2 mg IVP Q4 PRN PRN Reason: Pain, moderate (4-7) Morphine Sulfate (Morphine) 4 mg IVP Q6 PRN PRN Reason: Pain, severe (8-10) Ondansetron HCl (Zofran Inj) 4 mg IVP Q6 PRN PRN Reason: Nausea/Vomiting - Labs Labs: 05/21/18 05:50 05/21/18 05:50 PT 12.4 Seconds (9.8-13.1) 05/20/18 17:00 INR 1.1 05/20/18 17:00 APTT 26.7 Seconds (25.6-37.1) 05/20/18 17:00 - Constitutional Appears: No Acute Distress, Younger Than Stated Age - Head Exam Head Exam: NORMAL INSPECTION - Eye Exam Eye Exam: Normal appearance. absent: Scleral icterus - ENT Exam ENT Exam: Mucous Membranes Moist, Normal Oropharynx - Neck Exam Neck Exam: Normal Inspection - Respiratory Exam Respiratory Exam: Clear to Ausculation Bilateral, NORMAL BREATHING PATTERN. absent: Rhonchi, Wheezes - Cardiovascular Exam Cardiovascular Exam: REGULAR RHYTHM, +S1, +S2 - GI/Abdominal Exam GI & Abdominal Exam: Soft, Normal Bowel Sounds. absent: Guarding, Rigid Additional comments: Mild RUQ and mild abdominal tenderness - Extremities Exam Extremities Exam: Normal Inspection. absent: Calf Tenderness - Neurological Exam Neurological Exam: Alert, Awake, Oriented x3 - Psychiatric Exam Psychiatric exam: Normal Affect, Normal Mood - Skin Skin Exam: Normal Color Additional comments: multiple tattoos Assessment and Plan - Assessment and Plan (Free Text) Assessment: 58 year old female with hypothyroidism; admitted for RUQ pain secondary to acute cholecystitis. Per surgery team, patient is scheduled for OR tomorrow for cholecystectomy. Plan: acute cholecystitis -Afebrile with stable vitals - Surgery consult - Dr. Christine; recs appreciated - OR tomorrow morning - c/w IVF, LR @ 100 ml/hr - Zosyn 3.375 mg Q6 hrs; 1 dose in ED - c/w Zosyn 3.375 q6hr - Pain control scale w/ morphine, 1 mg q4hs prn mild pain, 2 mg q4hrs prn mod pain, 4 mg q6hrs prn severe pain - Zofran 4 mg IVP Q6 for nausea - WBC 10.0 improved from last night. - Labs, ECG, CXR reviewed - Patient is medically optimized for surgery tomorrow - F/u blood, urine cultures Hypothyroidism -TSH 5.65 -Patient was not taking medications for few months -c/w Levothyroxine 50 mcg po daily Diet -Clear liquid diet -NPO past midnight DVT prophylaxis - SCDs for now Plan discussed with Dr. Hills <Austin Hills D - Last Filed: 05/21/18 13:08> Objective - Vital Signs/Intake and Output Vital Signs (last 24 hours): Temp Pulse Resp BP Pulse Ox 97.6 F 76 20 131/69 96 05/21/18 09:00 05/21/18 09:00 05/21/18 09:00 05/21/18 09:00 05/21/18 09:00 - Medications Medications: Current Medications Piperacillin Sod/Tazobactam (Sod 3.375 gm/ Sodium Chloride) 100 mls @ 100 mls/hr IVPB Q6 [facility]; Protocol Last Admin: 05/21/18 09:08 Dose: 100 mls/hr Lactated Ringer's (Lactated Ringer's) 1,000 mls @ 100 mls/hr IV .Q10H [facility] Last Admin: 05/21/18 12:52 Dose: 100 mls/hr Levothyroxine Sodium (Synthroid) 50 mcg PO DAILY@0630 [facility] Last Admin: 05/21/18 09:53 Dose: 50 mcg Morphine Sulfate (Morphine) 1 mg IVP Q4 PRN PRN Reason: Pain, Mild (1-3) Morphine Sulfate (Morphine) 2 mg IVP Q4 PRN PRN Reason: Pain, moderate (4-7) Morphine Sulfate (Morphine) 4 mg IVP Q6 PRN PRN Reason: Pain, severe (8-10) Ondansetron HCl (Zofran Inj) 4 mg IVP Q6 PRN PRN Reason: Nausea/Vomiting - Labs Labs: 05/21/18 05:50 05/21/18 05:50 PT 12.4 Seconds (9.8-13.1) 05/20/18 17:00 INR 1.1 05/20/18 17:00 APTT 26.7 Seconds (25.6-37.1) 05/20/18 17:00 Attending/Attestation - Attestation I have personally seen and examined this patient.: Yes I have fully participated in the care of the patient.: Yes I have reviewed all pertinent clinical information, including history, physical exam and plan: Yes Notes (Text): 05/21/18 13:06 Patient seen and examined with resident. Case discussed and agreed with assessment and plan.
--- NOTE | 2018-05-21 11:07 | US ---
Date of service: 05/20/2018 HISTORY: acalculous cholecystitis on CT COMPARISON: None. TECHNIQUE: Sonographic evaluation of the right upper quadrant of the abdomen. FINDINGS: LIVER: Measures 14.3 cm in length. Patent portal vein. Portal venous flow: Hepatopetal. Unremarkable echogenicity of the liver parenchyma. No mass. No intrahepatic bile duct dilatation. GALLBLADDER: Gallstones. Pericholecystic fluid identified. Gallbladder wall edema noted. COMMON BILE DUCT: Measures 3.4 mm. No stones. No dilatation. PANCREAS: Unremarkable as visualized. No mass. No ductal dilatation. RIGHT KIDNEY: Measures 5 x 10.2 cm in length. Normal echogenicity. No calculus, mass, or hydronephrosis. AORTA: No aneurysmal dilatation. IVC: Unremarkable. OTHER FINDINGS: None . IMPRESSION: Cholelithiasis/presumptive evidence for acute cholecystitis. Concordant findings (preliminary report) provided by [employer] [facility].
--- NOTE | 2018-05-21 12:21 | CT ---
Date of service: 05/20/2018 PROCEDURE: CT Abdomen and Pelvis with contrast HISTORY: r/o appendicitis COMPARISON: 2018. Right upper quadrant ultrasound. Summary of findings on the comparison examination:Cholelithiasis/presumptive evidence for acute cholecystitis. TECHNIQUE: Intravenous contrast dose: Radiation dose: Total exam DLP = <inf_radiation_dlp> mGy-cm. This CT exam was performed using one or more of the following dose reduction techniques: Automated exposure control, adjustment of the mA and/or kV according to patient size, and/or use of iterative reconstruction technique. FINDINGS: LOWER THORAX: Unremarkable. LIVER: Unremarkable. No gross lesion or ductal dilatation. GALLBLADDER AND BILE DUCTS: Distended gallbladder, gallbladder wall thickening, pericholecystic fluid. Gallstones identified with certainty on concurrent ultrasound although they were not seen on the present study. PANCREAS: Unremarkable. No gross lesion or ductal dilatation. SPLEEN: Unremarkable. ADRENALS: Unremarkable. No mass. KIDNEYS AND URETERS: Unremarkable. No hydronephrosis. No solid mass. VASCULATURE: Unremarkable. No aortic aneurysm. No atherosclerotic calcification or mural plaque present. BOWEL: Unremarkable. No obstruction. No gross mural thickening. APPENDIX: Normal appendix. PERITONEUM: Unremarkable. No free fluid. No free air. LYMPH NODES: Unremarkable. No enlarged lymph nodes. BLADDER: Unremarkable. REPRODUCTIVE: Unremarkable. BONES: No acute fracture. OTHER FINDINGS: None. IMPRESSION: Findings consistent with acute cholecystitis. Gallstones identified on concurrent ultrasound are not apparent on the present study. Concordant results (preliminary interpretation) provided by [facility]. Procedure Completed: 20:37. Preliminary Report: Dictated and Authenticated: 21:19. Final Interpretation: 12:17. 2018
--- NOTE | 2018-05-21 14:07 | RAD ---
Date of service: 05/21/2018 HISTORY: Admission. COMPARISON: 08/17/2015 FINDINGS: LUNGS: No active pulmonary disease. PLEURA: No significant pleural effusion identified, no pneumothorax apparent. CARDIOVASCULAR: No atherosclerotic calcification present No radiographic findings to suggest acute or significant cardiovascular disease. OSSEOUS STRUCTURES: No significant abnormalities. VISUALIZED UPPER ABDOMEN: Normal. OTHER FINDINGS: None. IMPRESSION: No active disease. No significant interval change compared to the prior examination(s).
[2018-05-22] MEDS: Piperacillin/Tazobact 3.375 GM in Sodium Chloride 0.9% 100 ML IVPB SCH ×4 (04:09→21:56)
[2018-05-22] MEDS: Lactated Ringer's 1,000 ML IV SCH ×2 (05:08→17:01)
[2018-05-22 05:58] LABS: BASO % 0.6 % (0.0-2.0); EOS # 0.1 K/uL (0.0-0.7); EOS % 0.8 % (0.0-4.0); LYMPH % 16.9 % (20.0-40.0); MEAN CELL VOLUME 96.1 fl (81.0-99.0); MEAN CORPUSCULAR HEMOGLOBIN 31.5 pg (27.0-31.0); MEAN CORPUSCULAR HGB CONC 32.8 g/dL (33.0-37.0); MEAN PLATELET VOLUME 11.1 fl (7.2-11.7); MONO # 0.5 K/uL (0.0-0.8); MONO % 8.5 % (0.0-10.0); NEUT # 4.4 K/uL (1.8-7.0); NEUT % 73.2 % (50.0-75.0); RBC 3.17 Mil/uL (3.80-5.20); RED CELL DISTRIBUTION WIDTH 13.4 % (11.5-14.5)
[2018-05-22 06:24] LABS: ALB/GLOB RATIO 1.1 (1.0-2.1); ALBUMIN 3.3 g/dL (3.5-5.0); ALT/SGPT 16 U/L (9-52); AST/SGOT 26 U/L (14-36); BLOOD UREA NITROGEN 5 mg/dl (7-17); CALCIUM 8.9 mg/dL (8.4-10.2); GFR NON-AFRICAN AMERICAN > 60
[2018-05-22] MEDS: Levothyroxine 50 MCG TAB PO SCH (07:09)
[2018-05-22] MEDS ORDERED: Propofol 10 mg/ml Inj (20 ML) ONE (07:25)
[2018-05-22] MEDS ORDERED: Succinylcholine Chloride 20 mg/ml Syr (5 ml) IV ONE (07:25)
[2018-05-22] MEDS ORDERED: Rocuronium 10 mg/ml (5 ml) ONE (07:25)
[2018-05-22] MEDS ORDERED: Midazolam 2 MG/2 ML VIAL ONE (07:25)
[2018-05-22] MEDS ORDERED: Sevoflurane - Inhalation Anesthetic Liq (250 ml) ONE (07:30)
[2018-05-22] MEDS ORDERED: Lactated Ringer's 1,000 ML IV ONE (08:20)
[2018-05-22] MEDS ORDERED: ePHEDrine 50 mg/ml Inj ONE (08:23)
[2018-05-22] MEDS ORDERED: Lidocaine 1% Inj (20ml) ONE (08:34)
[2018-05-22] MEDS ORDERED: Bupivacaine 0.5% Inj(30mL) ONE (08:34)
[2018-05-22] MEDS ORDERED: Lidocaine 1% Inj (20ml) IJ ONE (08:45)
[2018-05-22] MEDS ORDERED: Bupivacaine 0.5% Inj(30mL) IJ ONE (08:45)
[2018-05-22] MEDS ORDERED: Neostigmine 1:1000 (1 mg/ml) Inj ONE (09:27)
--- NOTE | 2018-05-22 10:23 | PCM.SURG1 ---
Surgeon's Initial Post Op Note - Surgeon's Notes Surgeon: Dr. Christine Computer Technology Trainer: Dr. Narvaez PGY3, Dr. Wallace PGY2 Pre-Operative Diagnosis: acute cholecystitis Operative Findings: acute on chronic cholecystitis Post-Operative Diagnosis: same Operation Performed: laparoscopic cholecystectomy Specimen/Specimens Removed: gallbladder Estimated Blood Loss: EBL {In ML}: 10 Blood Products Given: N/A Drains Used: No Drains Post-Op Condition: Good Date of Surgery/Procedure: 05/22/18 Time of Surgery/Procedure: 10:24
[2018-05-22] MEDS ORDERED: Morphine 4 MG/ML VIAL ONE ×2 (10:59→11:15)
--- NOTE | 2018-05-22 13:04 | CP.PCM.PN ---
<Sultan Diane - Last Filed: 05/22/18 13:00> Subjective - Date & Time of Evaluation Date of Evaluation: 05/22/18 Time of Evaluation: 12:55 - Subjective Subjective: Patient seen and examined at bedside this afternoon, s/p johana huber this morning. Vitals stable, afebrile She feels sleepy but denies any nausea, vomiting, chest pain or dyspnea Has not started eating yet. Objective - Vital Signs/Intake and Output Vital Signs (last 24 hours): Temp Pulse Resp BP Pulse Ox 98 F 77 18 134/72 96 05/22/18 12:35 05/22/18 12:35 05/22/18 12:35 05/22/18 12:35 05/22/18 12:35 Intake and Output: 05/22/18 05/22/18 06:59 18:59 Intake Total 1000 Balance 1000 - Medications Medications: Current Medications Piperacillin Sod/Tazobactam (Sod 3.375 gm/ Sodium Chloride) 100 mls @ 100 mls/hr IVPB Q6 [facility]; Protocol Last Admin: 05/22/18 04:09 Dose: 100 mls/hr Lactated Ringer's (Lactated Ringer's) 1,000 mls @ 100 mls/hr IV .Q10H [facility] Last Admin: 05/22/18 05:08 Dose: Not Given Levothyroxine Sodium (Synthroid) 50 mcg PO DAILY@0630 [facility] Last Admin: 05/22/18 07:09 Dose: Not Given Morphine Sulfate (Morphine) 1 mg IVP Q4 PRN PRN Reason: Pain, Mild (1-3) Morphine Sulfate (Morphine) 2 mg IVP Q4 PRN PRN Reason: Pain, moderate (4-7) Morphine Sulfate (Morphine) 4 mg IVP Q6 PRN PRN Reason: Pain, severe (8-10) Ondansetron HCl (Zofran Inj) 4 mg IVP Q6 PRN PRN Reason: Nausea/Vomiting - Labs Labs: 05/22/18 05:25 05/22/18 05:25 PT 12.4 Seconds (9.8-13.1) 05/20/18 17:00 INR 1.1 05/20/18 17:00 APTT 26.7 Seconds (25.6-37.1) 05/20/18 17:00 - Constitutional Appears: No Acute Distress, Younger Than Stated Age - Head Exam Head Exam: NORMAL INSPECTION - Eye Exam Eye Exam: Normal appearance - ENT Exam ENT Exam: Mucous Membranes Moist, Normal Oropharynx - Respiratory Exam Respiratory Exam: Clear to Ausculation Bilateral, NORMAL BREATHING PATTERN. absent: Rhonchi, Wheezes - Cardiovascular Exam Cardiovascular Exam: REGULAR RHYTHM, +S1, +S2 - GI/Abdominal Exam GI & Abdominal Exam: Soft, Normal Bowel Sounds - Extremities Exam Extremities Exam: Normal Inspection. absent: Calf Tenderness - Neurological Exam Neurological Exam: Alert, Awake - Psychiatric Exam Psychiatric exam: Normal Affect, Normal Mood - Skin Skin Exam: Normal Color Assessment and Plan - Assessment and Plan (Free Text) Assessment: 58 year old female with hypothyroidism; admitted for RUQ pain secondary to acute cholecystitis, s/p laparascopic cholecystectomy this morning, doing well. Plan: Acute cholecystitis s/p lap cholecystectomy this morning -Afebrile with stable vitals -Surgery consult - Dr. Christine; recs appreciated -c/w IVF, LR @ 100 ml/hr -c/w Zosyn 3.375 q6hr -Pain control scale w/ morphine, 1 mg q4hs prn mild pain, 2 mg q4hrs prn mod pain, 4 mg q6hrs prn severe pain -Zofran 4 mg IVP Q6 for nausea - Advanced diet -Incentive spirometer Hypothyroidism -TSH 5.65 -Patient was not taking medications for few months -c/w Levothyroxine 50 mcg po daily Diet -regular diet DVT prophylaxis -SCDs -Encourage ambulation Plan discussed with Dr. Hills <Austin Hills - Last Filed: 05/22/18 16:03> Objective - Vital Signs/Intake and Output Vital Signs (last 24 hours): Temp Pulse Resp BP Pulse Ox 97.6 F 77 20 131/68 95 05/22/18 15:34 05/22/18 15:34 05/22/18 15:34 05/22/18 15:34 05/22/18 15:34 Intake and Output: 05/22/18 05/22/18 06:59 18:59 Intake Total 1000 Balance 1000 - Medications Medications: Current Medications Piperacillin Sod/Tazobactam (Sod 3.375 gm/ Sodium Chloride) 100 mls @ 100 mls/hr IVPB Q6 [facility]; Protocol Last Admin: 05/22/18 13:43 Dose: Not Given Lactated Ringer's (Lactated Ringer's) 1,000 mls @ 100 mls/hr IV .Q10H [facility] Last Admin: 05/22/18 05:08 Dose: Not Given Levothyroxine Sodium (Synthroid) 50 mcg PO DAILY@0630 [facility] Last Admin: 05/22/18 07:09 Dose: Not Given Morphine Sulfate (Morphine) 1 mg IVP Q4 PRN PRN Reason: Pain, Mild (1-3) Morphine Sulfate (Morphine) 2 mg IVP Q4 PRN PRN Reason: Pain, moderate (4-7) Morphine Sulfate (Morphine) 4 mg IVP Q6 PRN PRN Reason: Pain, severe (8-10) Ondansetron HCl (Zofran Inj) 4 mg IVP Q6 PRN PRN Reason: Nausea/Vomiting - Labs Labs: 05/22/18 05:25 05/22/18 05:25 PT 12.4 Seconds (9.8-13.1) 05/20/18 17:00 INR 1.1 05/20/18 17:00 APTT 26.7 Seconds (25.6-37.1) 05/20/18 17:00 Attending/Attestation - Attestation I have personally seen and examined this patient.: Yes I have fully participated in the care of the patient.: Yes I have reviewed all pertinent clinical information, including history, physical exam and plan: Yes Notes (Text): 05/22/18 16:01 Patient seen and examined with resident. Case discussed and agreed with assessment and plan. Had just had cholecystectomy and still felt groggy.
[2018-05-23] MEDS: Lactated Ringer's 1,000 ML IV SCH ×4 (00:45→16:58)
[2018-05-23] MEDS: Piperacillin/Tazobact 3.375 GM in Sodium Chloride 0.9% 100 ML IVPB SCH ×4 (04:29→22:01)
[2018-05-23] MEDS: Levothyroxine 50 MCG TAB PO SCH (06:51)
[2018-05-23 07:30] LABS: BASO % 0.3 % (0.0-2.0); HEMOGLOBIN 10.4 g/dL (12.0-16.0); LYMPH # 0.8 K/uL (1.0-4.3); LYMPH % 8.5 % (20.0-40.0); MEAN CELL VOLUME 93.8 fl (81.0-99.0); MEAN CORPUSCULAR HEMOGLOBIN 31.9 pg (27.0-31.0); MEAN PLATELET VOLUME 11.5 fl (7.2-11.7); MONO # 0.7 K/uL (0.0-0.8); MONO % 7.6 % (0.0-10.0); NEUT % 83.6 % (50.0-75.0); NRBC % 0.1 % (0.0-0.0); RBC 3.25 Mil/uL (3.80-5.20); WHITE BLOOD COUNT 9.6 K/uL (4.8-10.8)
[2018-05-23 07:47] LABS: BLOOD UREA NITROGEN 3 mg/dl (7-17); CALCIUM 8.7 mg/dL (8.4-10.2); GFR NON-AFRICAN AMERICAN > 60
--- NOTE | 2018-05-23 10:58 | CP.PCM.PN ---
<[place] - Last Filed: 05/23/18 10:54> Subjective - Date & Time of Evaluation Date of Evaluation: 05/23/18 Time of Evaluation: 09:20 - Subjective Subjective: Patient seen and examined this morning, s/p Jevon Monique, Pod 1 Overnight events reviewed, patient had fever of 102.4 and blood cx x 2 sent. Patient is tolerating PO. Denies any nausea, vomiting, dysuria, abdominal pain or dizziness. +flatus but denies any BM. Denies any chest pain, dyspnea, cough or calf pain Objective - Vital Signs/Intake and Output Vital Signs (last 24 hours): Temp Pulse Resp BP Pulse Ox 100.3 F H 95 H 20 129/71 94 L 05/23/18 08:24 05/23/18 08:24 05/23/18 08:24 05/23/18 08:24 05/23/18 08:24 - Medications Medications: Current Medications Piperacillin Sod/Tazobactam (Sod 3.375 gm/ Sodium Chloride) 100 mls @ 100 mls/hr IVPB Q6 [facility]; Protocol Last Admin: 05/23/18 09:53 Dose: 100 mls/hr Lactated Ringer's (Lactated Ringer's) 1,000 mls @ 100 mls/hr IV .Q10H [facility] Last Admin: 05/23/18 01:31 Dose: 100 mls/hr Levothyroxine Sodium (Synthroid) 50 mcg PO DAILY@0630 [facility] Last Admin: 05/23/18 06:51 Dose: 50 mcg Morphine Sulfate (Morphine) 1 mg IVP Q4 PRN PRN Reason: Pain, Mild (1-3) Morphine Sulfate (Morphine) 2 mg IVP Q4 PRN PRN Reason: Pain, moderate (4-7) Last Admin: 05/23/18 00:13 Dose: 2 mg Morphine Sulfate (Morphine) 4 mg IVP Q6 PRN PRN Reason: Pain, severe (8-10) Ondansetron HCl (Zofran Inj) 4 mg IVP Q6 PRN PRN Reason: Nausea/Vomiting Last Admin: 05/22/18 21:59 Dose: 4 mg - Labs Labs: 05/23/18 05:30 05/23/18 05:30 PT 12.4 Seconds (9.8-13.1) 05/20/18 17:00 INR 1.1 05/20/18 17:00 APTT 26.7 Seconds (25.6-37.1) 05/20/18 17:00 - Additional Findings Additional findings: - Constitutional Appears: No Acute Distress, Younger Than Stated Age - Head Exam Head Exam: NORMAL INSPECTION - Eye Exam Eye Exam: Normal appearance. absent: Scleral icterus - ENT Exam ENT Exam: Mucous Membranes Moist, Normal Oropharynx - Neck Exam Neck Exam: Normal Inspection - Respiratory Exam Respiratory Exam: Clear to Ausculation Bilateral, NORMAL BREATHING PATTERN. absent: Rhonchi, Wheezes - Cardiovascular Exam Cardiovascular Exam: REGULAR RHYTHM, +S1, +S2 - GI/Abdominal Exam GI & Abdominal Exam: Soft, Normal Bowel Sounds. absent: Guarding, Rigid Additional comments: +erythema surrounding umbilical incision. No oozing or discharge. RUQ incision has minimal erythema. - Extremities Exam Extremities Exam: Normal Inspection. absent: Calf Tenderness - Neurological Exam Neurological Exam: Alert, Awake, Oriented x3 - Psychiatric Exam Psychiatric exam: Normal Affect, Normal Mood - Skin Skin Exam: Normal Color Additional comments: multiple tattoos Assessment and Plan - Assessment and Plan (Free Text) Assessment: Assessment: 58 year old female with hypothyroidism; admitted for RUQ pain secondary to acute cholecystitis, s/p laparascopic cholecystectomy, POD1, had fever of 102.4 F this morning. Plan: Acute cholecystitis s/p lap cholecystectomy POD 1 -Surgery consult - Dr. Christine; recs appreciated -Fever of 102.4 F this morning at 4 am, otherwise stable vitals -wbc 9.6 with left shift -c/w IVF, LR @ 100 ml/hr -c/w Zosyn 3.375 q6hr -Pain control scale w/ morphine, 1 mg q4hs prn mild pain, 2 mg q4hrs prn mod pain, 4 mg q6hrs prn severe pain -Zofran 4 mg IVP Q6 for nausea -Regular diet -Incentive spirometer -f/u blood cx, AM labs. Hypothyroidism -TSH 5.65 -Patient was not taking medications for few months -c/w Levothyroxine 50 mcg po daily Diet -regular diet DVT prophylaxis -SCDs -Encourage ambulation Plan discussed with Dr. Hills <Austin Hills D - Last Filed: 05/23/18 13:33> Objective - Vital Signs/Intake and Output Vital Signs (last 24 hours): Temp Pulse Resp BP Pulse Ox 98.7 F 79 20 132/73 98 05/23/18 12:15 05/23/18 12:15 05/23/18 12:15 05/23/18 12:15 05/23/18 12:15 - Medications Medications: Current Medications Piperacillin Sod/Tazobactam (Sod 3.375 gm/ Sodium Chloride) 100 mls @ 100 mls/hr IVPB Q6 [facility]; Protocol Last Admin: 05/23/18 09:53 Dose: 100 mls/hr Lactated Ringer's (Lactated Ringer's) 1,000 mls @ 100 mls/hr IV .Q10H [facility] Last Admin: 05/23/18 01:31 Dose: 100 mls/hr Levothyroxine Sodium (Synthroid) 50 mcg PO DAILY@0630 [facility] Last Admin: 05/23/18 06:51 Dose: 50 mcg Morphine Sulfate (Morphine) 1 mg IVP Q4 PRN PRN Reason: Pain, Mild (1-3) Morphine Sulfate (Morphine) 2 mg IVP Q4 PRN PRN Reason: Pain, moderate (4-7) Last Admin: 05/23/18 00:13 Dose: 2 mg Morphine Sulfate (Morphine) 4 mg IVP Q6 PRN PRN Reason: Pain, severe (8-10) Ondansetron HCl (Zofran Inj) 4 mg IVP Q6 PRN PRN Reason: Nausea/Vomiting Last Admin: 05/22/18 21:59 Dose: 4 mg - Labs Labs: 05/23/18 05:30 05/23/18 05:30 PT 12.4 Seconds (9.8-13.1) 05/20/18 17:00 INR 1.1 05/20/18 17:00 APTT 26.7 Seconds (25.6-37.1) 05/20/18 17:00 Attending/Attestation - Attestation I have personally seen and examined this patient.: Yes I have fully participated in the care of the patient.: Yes I have reviewed all pertinent clinical information, including history, physical exam and plan: Yes Notes (Text): 05/23/18 13:32 Patient seen and examined. Case discussed and agreed with assessment and plan. Patient is 1st day post op and had fever earlier this morning. Will discharge patient tomorrow if she remained afebrile.
[2018-05-23 16:04] LABS: ALBUMIN 3.3 g/dL (3.5-5.0); BILIRUBIN,DIRECT 0.1 mg/ml (0.0-0.4)
--- NOTE | 2018-05-23 16:48 | CP.PCM.PN ---
Subjective - Date & Time of Evaluation Date of Evaluation: 05/23/18 Time of Evaluation: 15:30 - Subjective Subjective: Patient seen and examined. Tmax of 102.4F. Tolerating food. Incision site tenderness. Objective - Vital Signs/Intake and Output Vital Signs (last 24 hours): Temp Pulse Resp BP Pulse Ox 98.7 F 83 19 131/71 94 L 05/23/18 16:37 05/23/18 16:37 05/23/18 16:37 05/23/18 16:37 05/23/18 16:37 - Medications Medications: Current Medications Piperacillin Sod/Tazobactam (Sod 3.375 gm/ Sodium Chloride) 100 mls @ 100 mls/hr IVPB Q6 [facility]; Protocol Last Admin: 05/23/18 09:53 Dose: 100 mls/hr Lactated Ringer's (Lactated Ringer's) 1,000 mls @ 100 mls/hr IV .Q10H [facility] Last Admin: 05/23/18 01:31 Dose: 100 mls/hr Levothyroxine Sodium (Synthroid) 50 mcg PO DAILY@0630 [facility] Last Admin: 05/23/18 06:51 Dose: 50 mcg Morphine Sulfate (Morphine) 1 mg IVP Q4 PRN PRN Reason: Pain, Mild (1-3) Morphine Sulfate (Morphine) 2 mg IVP Q4 PRN PRN Reason: Pain, moderate (4-7) Last Admin: 05/23/18 00:13 Dose: 2 mg Morphine Sulfate (Morphine) 4 mg IVP Q6 PRN PRN Reason: Pain, severe (8-10) Ondansetron HCl (Zofran Inj) 4 mg IVP Q6 PRN PRN Reason: Nausea/Vomiting Last Admin: 05/22/18 21:59 Dose: 4 mg - Labs Labs: 05/23/18 05:30 05/23/18 05:30 PT 12.4 Seconds (9.8-13.1) 05/20/18 17:00 INR 1.1 05/20/18 17:00 APTT 26.7 Seconds (25.6-37.1) 05/20/18 17:00 - Head Exam Head Exam: NORMOCEPHALIC - Eye Exam Eye Exam: EOMI, Normal appearance Pupil Exam: NORMAL ACCOMODATION - ENT Exam ENT Exam: Mucous Membranes Moist - Respiratory Exam Respiratory Exam: NORMAL BREATHING PATTERN - Cardiovascular Exam Cardiovascular Exam: +S1, +S2 - GI/Abdominal Exam GI & Abdominal Exam: Soft, Tenderness. absent: Firm, Guarding, Rigid, Rebound - Neurological Exam Neurological Exam: Alert, Awake, Oriented x3 - Skin Skin Exam: Dry, Intact, Warm Assessment and Plan - Assessment and Plan (Free Text) Assessment: 58F s/p laparoscopic cholecystectomy POD 1 Plan: -Regular diet -ABx -F/u Blood Cx -Encourage ambulation -Encourage incentive spirometer -DVT ppx -Further recs per Dr. Emmett Ceja PGY3
[2018-05-24] MEDS: Piperacillin/Tazobact 3.375 GM in Sodium Chloride 0.9% 100 ML IVPB SCH ×4 (04:16→21:58)
[2018-05-24 06:55] LABS: BASO % 0.5 % (0.0-2.0); EOS % 0.5 % (0.0-4.0); HEMOGLOBIN 9.3 g/dL (12.0-16.0); LYMPH % 13.4 % (20.0-40.0); MEAN CELL VOLUME 94.2 fl (81.0-99.0); MEAN CORPUSCULAR HEMOGLOBIN 31.4 pg (27.0-31.0); MEAN CORPUSCULAR HGB CONC 33.4 g/dL (33.0-37.0); MEAN PLATELET VOLUME 11.5 fl (7.2-11.7); MONO # 0.7 K/uL (0.0-0.8); MONO % 9.8 % (0.0-10.0); NEUT # 5.6 K/uL (1.8-7.0); NEUT % 75.8 % (50.0-75.0); RBC 2.96 Mil/uL (3.80-5.20); WHITE BLOOD COUNT 7.4 K/uL (4.8-10.8)
[2018-05-24 07:02] LABS: BLOOD UREA NITROGEN 4 mg/dl (7-17); CALCIUM 8.6 mg/dL (8.4-10.2); GFR NON-AFRICAN AMERICAN > 60
[2018-05-24] MEDS: Levothyroxine 50 MCG TAB PO SCH (07:40)
[2018-05-24] MEDS ORDERED: Potassium Chloride 20 mEq/15 ml LIQ UD PO ONE (08:31)
--- NOTE | 2018-05-24 09:34 | CP.PCM.PN ---
Subjective - Date & Time of Evaluation Date of Evaluation: 05/24/18 Time of Evaluation: 09:32 - Subjective Subjective: Surgery Progress note- Dr. Christine Patient seen and examined at bedside. patient had fever of 101.5 overnight. since has resolved currently 98.9. Abd pain improving. + nausea, no vomiting. Tolerating regular diet. + OOB and ambulating. using Incentive spirometer pulling < 800cc. Objective - Vital Signs/Intake and Output Vital Signs (last 24 hours): Temp Pulse Resp BP Pulse Ox 99.2 F 84 20 153/75 H 94 L 05/24/18 08:29 05/24/18 08:29 05/24/18 08:29 05/24/18 08:29 05/24/18 08:29 - Medications Medications: Current Medications Acetaminophen (Tylenol 325mg Tab) 650 mg PO Q6 PRN PRN Reason: Pain, Mild (1-3) Last Admin: 05/23/18 16:59 Dose: 650 mg Piperacillin Sod/Tazobactam (Sod 3.375 gm/ Sodium Chloride) 100 mls @ 100 mls/hr IVPB Q6 [facility]; Protocol Last Admin: 05/24/18 09:03 Dose: 100 mls/hr Levothyroxine Sodium (Synthroid) 50 mcg PO DAILY@0630 [facility] Last Admin: 05/24/18 07:40 Dose: 50 mcg - Labs Labs: 05/24/18 05:30 05/24/18 05:30 PT 12.4 Seconds (9.8-13.1) 05/20/18 17:00 INR 1.1 05/20/18 17:00 APTT 26.7 Seconds (25.6-37.1) 05/20/18 17:00 - Constitutional Appears: Non-toxic, No Acute Distress - Head Exam Head Exam: ATRAUMATIC - Eye Exam Eye Exam: EOMI. absent: Scleral icterus - ENT Exam ENT Exam: Mucous Membranes Moist - Respiratory Exam Respiratory Exam: NORMAL BREATHING PATTERN. absent: Accessory Muscle Use, Respiratory Distress - Cardiovascular Exam Cardiovascular Exam: REGULAR RHYTHM. absent: Bradycardia, Tachycardia - GI/Abdominal Exam GI & Abdominal Exam: Soft, Tenderness (minimal tenderness to palpation around incision). absent: Distended, Firm, Guarding, Rigid - Extremities Exam Extremities Exam: absent: Calf Tenderness - Neurological Exam Neurological Exam: Alert, Awake, Oriented x3 - Psychiatric Exam Psychiatric exam: Normal Affect - Skin Skin Exam: Intact, Warm Assessment and Plan - Assessment and Plan (Free Text) Assessment: 58F s/p lap ceclie POD#2 Plan: - aggressive Incentive spirometer; and OOB and ambulating - f/u blood cultures - diet as tolerated - c/w IV Abx - will continue to monitor - further recs per Dr. Christine surgical attending PGY2
--- NOTE | 2018-05-24 11:20 | RAD ---
Date of service: 05/24/2018 HISTORY: fever COMPARISON: Chest radiograph dated 05/21/2018 TECHNIQUE: Chest PA and lateral FINDINGS: LUNGS: Pulmonary vascular congestion. Bibasilar atelectasis. New left lower lobe infiltrate. PLEURA: Small bilateral pleural effusions. No pneumothorax apparent. CARDIOVASCULAR: Aortic atherosclerotic calcifications. Cardiomediastinal silhouette stably prominent OSSEOUS STRUCTURES: No significant abnormalities. VISUALIZED UPPER ABDOMEN: Normal. OTHER FINDINGS: None. IMPRESSION: Bibasilar atelectasis with small bilateral pleural effusions. New left lower lobe infiltrate.
[2018-05-24 12:17] LABS: URINE BILIRUBIN NEGATIVE (NEGATIVE); URINE BLOOD MODERATE (NEGATIVE); URINE CLARITY CLEAR (Clear); URINE COLOR STRAW (YELLOW); URINE GLUCOSE (UA) NEG (NEGATIVE); URINE LEUKOCYTE ESTERASE NEG Leu/uL (Negative); URINE PROTEIN NEGATIVE (NEGATIVE); URINE UROBILINOGEN 0.2-1.0 mg/dL (0.2-1.0)
--- NOTE | 2018-05-24 16:20 | CP.PCM.PN ---
<Jaswant Cisneros - Last Filed: 05/24/18 16:50> Subjective - Date & Time of Evaluation Date of Evaluation: 05/24/18 Time of Evaluation: 16:20 - Subjective Subjective: 58 YO F s/p Lap/cecile seen at bedside had a 101.5 fever overnight. Has been afebrile throughout the day. She has had a non productive cough over the last 3 days. - She has been using her insentive spirometer. She had a large bowl movement after walking around the floor, which was semisolid in consistency. Denies any blood. - Denies any fever chills, nausea, or vomiting. Objective - Vital Signs/Intake and Output Vital Signs (last 24 hours): Temp Pulse Resp BP Pulse Ox 99.2 F 84 20 153/75 H 94 L 05/24/18 08:29 05/24/18 08:29 05/24/18 08:29 05/24/18 08:29 05/24/18 08:29 - Medications Medications: Current Medications Acetaminophen (Tylenol 325mg Tab) 650 mg PO Q6 PRN PRN Reason: Pain, Mild (1-3) Last Admin: 05/23/18 16:59 Dose: 650 mg Piperacillin Sod/Tazobactam (Sod 3.375 gm/ Sodium Chloride) 100 mls @ 100 mls/hr IVPB Q6 [facility]; Protocol Last Admin: 05/24/18 09:03 Dose: 100 mls/hr Levothyroxine Sodium (Synthroid) 50 mcg PO DAILY@0630 [facility] Last Admin: 05/24/18 07:40 Dose: 50 mcg - Labs Labs: 05/24/18 05:30 05/24/18 05:30 PT 12.4 Seconds (9.8-13.1) 05/20/18 17:00 INR 1.1 05/20/18 17:00 APTT 26.7 Seconds (25.6-37.1) 05/20/18 17:00 Assessment and Plan - Assessment and Plan (Free Text) Assessment: 58 year old female with hypothyroidism; admitted for RUQ pain secondary to acute cholecystitis, s/p laparascopic cholecystectomy, POD2, had fever of 101.5 F this morning. Plan: Acute cholecystitis s/p lap cholecystectomy POD 2 -Surgery consult - Dr. Christine; recs appreciated -Fever of 101.5F last night, otherwise stable vitals -wbc 7.4 -c/w Zosyn 3.375 q6hr -Pain control scale w/ morphine, 1 mg q4hs prn mild pain, 2 mg q4hrs prn mod pain, 4 mg q6hrs prn severe pain -Zofran 4 mg IVP Q6 for nausea -Regular diet - Chest Xray reading -Incentive spirometer Cough - Fever of 101.5F last night, otherwise stable vitals -wbc 7.4 -c/w Zosyn 3.375 q6hr - Bibasilar atelectasis with small bilateral pleural effusions. New left lower lobe lower lobe infilterate - Continue to monitor vitals Hypothyroidism -TSH 5.65 -Patient was not taking medications for few months -c/w Levothyroxine 50 mcg po daily Diet -regular diet DVT prophylaxis -SCDs -Encourage ambulation Plan discussed with Dr. Hills <[place] - Last Filed: 05/24/18 16:56> Objective - Vital Signs/Intake and Output Vital Signs (last 24 hours): Temp Pulse Resp BP Pulse Ox 98.7 F 86 19 148/71 95 05/24/18 16:34 05/24/18 16:34 05/24/18 16:34 05/24/18 16:34 05/24/18 16:34 - Medications Medications: Current Medications Acetaminophen (Tylenol 325mg Tab) 650 mg PO Q6 PRN PRN Reason: Pain, Mild (1-3) Last Admin: 05/23/18 16:59 Dose: 650 mg Piperacillin Sod/Tazobactam (Sod 3.375 gm/ Sodium Chloride) 100 mls @ 100 mls/hr IVPB Q6 [facility]; Protocol Last Admin: 05/24/18 09:03 Dose: 100 mls/hr Levothyroxine Sodium (Synthroid) 50 mcg PO DAILY@0630 [facility] Last Admin: 05/24/18 07:40 Dose: 50 mcg - Labs Labs: 05/24/18 05:30 05/24/18 05:30 PT 12.4 Seconds (9.8-13.1) 05/20/18 17:00 INR 1.1 05/20/18 17:00 APTT 26.7 Seconds (25.6-37.1) 05/20/18 17:00 Attending/Attestation - Attestation I have personally seen and examined this patient.: Yes I have fully participated in the care of the patient.: Yes I have reviewed all pertinent clinical information, including history, physical exam and plan: Yes Notes (Text): 05/24/18 16:53 Patient seen and examined with resident. Case discussed and agreed with assessment and plans. Patient seen most of the time lying in bed claiming she still felt sore and weak. Pain felt more on the surgical site and much less than prior to surgery. Patient advised to continue use of spirometry and to move around.
[2018-05-25 00:36] VITALS: RESP 20
[2018-05-25] MEDS: Piperacillin/Tazobact 3.375 GM in Sodium Chloride 0.9% 100 ML IVPB SCH ×2 (04:30→09:18)
[2018-05-25 06:19] LABS: BASO % 0.2 % (0.0-2.0); EOS # 0.1 K/uL (0.0-0.7); EOS % 0.8 % (0.0-4.0); HEMOGLOBIN 10.5 g/dL (12.0-16.0); LYMPH # 1.1 K/uL (1.0-4.3); LYMPH % 16.1 % (20.0-40.0); MEAN CELL VOLUME 94.7 fl (81.0-99.0); MEAN CORPUSCULAR HEMOGLOBIN 31.6 pg (27.0-31.0); MEAN CORPUSCULAR HGB CONC 33.4 g/dL (33.0-37.0); MEAN PLATELET VOLUME 11.2 fl (7.2-11.7); MONO # 0.6 K/uL (0.0-0.8); MONO % 8.5 % (0.0-10.0); NEUT # 5.1 K/uL (1.8-7.0); NEUT % 74.4 % (50.0-75.0); RBC 3.33 Mil/uL (3.80-5.20); RED CELL DISTRIBUTION WIDTH 13.1 % (11.5-14.5); WHITE BLOOD COUNT 6.8 K/uL (4.8-10.8)
[2018-05-25 06:28] LABS: ALBUMIN 3.5 g/dL (3.5-5.0); ALT/SGPT 37 U/L (9-52); AST/SGOT 43 U/L (14-36); BLOOD UREA NITROGEN 3 mg/dl (7-17); CALCIUM 9.4 mg/dL (8.4-10.2); GFR NON-AFRICAN AMERICAN > 60
[2018-05-25] MEDS: Levothyroxine 50 MCG TAB PO SCH (06:56)
--- NOTE | 2018-05-25 07:18 | CP.PCM.PN ---
Subjective - Date & Time of Evaluation Date of Evaluation: 05/25/18 Time of Evaluation: 07:16 - Subjective Subjective: Surgery progress note - Dr. Christine Patient seen and examined at bedside this AM resting comfortably. No fevers overnight. Abd pain controlled. Denies n/v. Tolerating regular diet. + OOB and ambulating. Using incentive spirometer. No f/c/sob/cp. Objective - Vital Signs/Intake and Output Vital Signs (last 24 hours): Temp Pulse Resp BP Pulse Ox 98.8 F 81 20 134/70 98 05/25/18 00:23 05/25/18 00:23 05/25/18 00:23 05/25/18 00:23 05/25/18 00:23 - Medications Medications: Current Medications Acetaminophen (Tylenol 325mg Tab) 650 mg PO Q6 PRN PRN Reason: Pain, Mild (1-3) Last Admin: 05/23/18 16:59 Dose: 650 mg Piperacillin Sod/Tazobactam (Sod 3.375 gm/ Sodium Chloride) 100 mls @ 100 mls/hr IVPB Q6 JAYNE; Protocol Last Admin: 05/25/18 04:30 Dose: 100 mls/hr Levothyroxine Sodium (Synthroid) 50 mcg PO DAILY@0630 JAYNE Last Admin: 05/25/18 06:56 Dose: 50 mcg - Labs Labs: 05/25/18 05:30 05/25/18 05:30 PT 12.4 Seconds (9.8-13.1) 05/20/18 17:00 INR 1.1 05/20/18 17:00 APTT 26.7 Seconds (25.6-37.1) 05/20/18 17:00 - Constitutional Appears: No Acute Distress - Head Exam Head Exam: ATRAUMATIC - Eye Exam Eye Exam: EOMI. absent: Scleral icterus - ENT Exam ENT Exam: Mucous Membranes Moist - Respiratory Exam Respiratory Exam: NORMAL BREATHING PATTERN. absent: Accessory Muscle Use - Cardiovascular Exam Cardiovascular Exam: REGULAR RHYTHM. absent: Bradycardia, Tachycardia - GI/Abdominal Exam GI & Abdominal Exam: Soft, Tenderness (minimal tenderness to palpation around incision). absent: Distended, Firm, Guarding, Rigid - Extremities Exam Extremities Exam: Normal Capillary Refill. absent: Calf Tenderness - Neurological Exam Neurological Exam: Alert, Awake, Oriented x3 - Psychiatric Exam Psychiatric exam: Normal Affect - Skin Skin Exam: Intact, Warm Assessment and Plan - Assessment and Plan (Free Text) Assessment: 58F s/p lap cecile POD#3 Plan: - using Incentive spirometer; and OOB and ambulating - f/u blood cultures - prelim no growth - tolerating regular diet - cleared for discharge from surgery standpoint - f/u with Dr. Christine in office at end of week - can shower and bathe, recommend limiting lifting of heavy items for first few weeks postop - further recs per Dr. Christine surgical attending Lalita PGY1
--- NOTE | 2018-05-25 09:39 | CP.PCM.DIS ---
Provider - Provider Date of Admission: 05/20/18 23:57 Attending physician: Rashaun Salas Consults: 05/21/18 00:50 Surgery [General Surgery Consult] Stat Comment: Consulting Provider: Cam Christine Consulting Physician: Cam Christine Reason for Consult: acute cholecystitis Time Spent in preparation of Discharge (in minutes): 30 Diagnosis - Discharge Diagnosis (1) Acute cholecystitis Status: Resolved (2) S/P laparoscopic cholecystectomy Status: Resolved (3) History of hypothyroidism Status: Chronic (4) Postoperative fever Status: Resolved Hospital Course - Lab Results Lab Results: Micro Results 05/20/18 22:25 Blood Blood Culture - Preliminary NO GROWTH AFTER 4 DAYS 05/20/18 22:20 Blood Blood Culture - Preliminary NO GROWTH AFTER 4 DAYS 05/23/18 05:30 Blood-Venous Blood Culture - Preliminary NO GROWTH AFTER 48 HOURS 05/23/18 05:30 Blood-Venous Blood Culture - Preliminary NO GROWTH AFTER 48 HOURS 05/20/18 16:57 Urine,Clean Catch Urine Culture - Final No Growth (<1,000 CFU/ML) Most Recent Lab Values WBC 6.8 K/uL (4.8-10.8) 05/25/18 05:30 RBC 3.33 Mil/uL (3.80-5.20) L 05/25/18 05:30 Hgb 10.5 g/dL (12.0-16.0) L 05/25/18 05:30 Hct 31.5 % (34.0-47.0) L 05/25/18 05:30 MCV 94.7 fl (81.0-99.0) 05/25/18 05:30 MCH 31.6 pg (27.0-31.0) H 05/25/18 05:30 MCHC 33.4 g/dL (33.0-37.0) 05/25/18 05:30 RDW 13.1 % (11.5-14.5) 05/25/18 05:30 Plt Count 213 K/uL (130-400) 05/25/18 05:30 MPV 11.2 fl (7.2-11.7) 05/25/18 05:30 Neut % (Auto) 74.4 % (50.0-75.0) 05/25/18 05:30 Lymph % (Auto) 16.1 % (20.0-40.0) L 05/25/18 05:30 [place] % (Auto) 8.5 % (0.0-10.0) 05/25/18 05:30 Eos % (Auto) 0.8 % (0.0-4.0) 05/25/18 05:30 Baso % (Auto) 0.2 % (0.0-2.0) 05/25/18 05:30 Neut # (Auto) 5.1 K/uL (1.8-7.0) 05/25/18 05:30 Lymph # (Auto) 1.1 K/uL (1.0-4.3) 05/25/18 05:30 [place] # (Auto) 0.6 K/uL (0.0-0.8) 05/25/18 05:30 Eos # (Auto) 0.1 K/uL (0.0-0.7) 05/25/18 05:30 Baso # (Auto) 0.0 K/uL (0.0-0.2) 05/25/18 05:30 Neutrophils % (Manual) 80 % (42-75) H 05/20/18 17:00 Band Neutrophils % 3 % (0-2) H 05/20/18 17:00 Lymphocytes % (Manual) 10 % (20-50) L 05/20/18 17:00 Monocytes % (Manual) 7 % (0-10) 05/20/18 17:00 Toxic Granulation Present 05/20/18 17:00 Platelet Estimate Normal (NORMAL) 05/20/18 17:00 Poikilocytosis (manual Slight 05/20/18 17:00 Anisocytosis (manual) Moderate 05/20/18 17:00 Macrocytosis (manual) Slight 05/20/18 17:00 Ovalocytes Slight 05/20/18 17:00 PT 12.4 Seconds (9.8-13.1) 05/20/18 17:00 INR 1.1 05/20/18 17:00 APTT 26.7 Seconds (25.6-37.1) 05/20/18 17:00 Sodium 141 mmol/l (132-148) 05/25/18 05:30 Potassium 3.9 MMOL/L (3.6-5.0) 05/25/18 05:30 Chloride 100 mmol/L (98-107) 05/25/18 05:30 Carbon Dioxide 30 mmol/L (22-30) 05/25/18 05:30 Anion Gap 15 (10-20) 05/25/18 05:30 BUN 3 mg/dl (7-17) L 05/25/18 05:30 Creatinine 0.7 mg/dl (0.7-1.2) 05/25/18 05:30 Est GFR ( Amer) > 60 05/25/18 05:30 Est GFR (Non-Af Amer) > 60 05/25/18 05:30 Random Glucose 99 mg/dL (65-105) 05/25/18 05:30 Calcium 9.4 mg/dL (8.4-10.2) 05/25/18 05:30 Phosphorus 4.0 mg/dl (2.5-4.5) 05/22/18 05:25 Magnesium 1.9 MG/DL (1.6-2.3) 05/22/18 05:25 Total Bilirubin 0.4 mg/dl (0.2-1.3) 05/25/18 05:30 Direct Bilirubin 0.1 mg/ml (0.0-0.4) 05/23/18 15:43 AST 43 U/L (14-36) H D 05/25/18 05:30 ALT 37 U/L (9-52) 05/25/18 05:30 Alkaline Phosphatase 105 U/L (38-126) 05/25/18 05:30 Troponin I 0.0120 ng/mL (0.00-0.120) 05/20/18 17:00 Total Protein 6.9 G/DL (6.3-8.2) 05/25/18 05:30 Albumin 3.5 g/dL (3.5-5.0) 05/25/18 05:30 Globulin 3.4 gm/dL (2.2-3.9) 05/25/18 05:30 Albumin/Globulin Ratio 1.0 (1.0-2.1) 05/25/18 05:30 Lipase 26 U/L (23-300) 05/20/18 17:00 TSH 3rd Generation 5.65 mIU/ML (0.46-4.68) H 05/21/18 05:50 Urine Color Straw (YELLOW) 05/24/18 11:40 Urine Clarity Clear (Clear) 05/24/18 11:40 Urine pH 7.0 (5.0-8.0) 05/24/18 11:40 Ur Specific [place] 1.009 (1.003-1.030) 05/24/18 11:40 Urine Protein Negative mg/dL (NEGATIVE) 05/24/18 11:40 Urine Glucose (UA) Neg mg/dL (NEGATIVE) 05/24/18 11:40 Urine Ketones Negative mg/dL (NEGATIVE) 05/24/18 11:40 Urine Blood Moderate (NEGATIVE) 05/24/18 11:40 Urine Nitrate Negative (NEGATIVE) 05/24/18 11:40 Urine Bilirubin Negative (NEGATIVE) 05/24/18 11:40 Urine Urobilinogen 0.2-1.0 mg/dL (0.2-1.0) 05/24/18 11:40 Ur Leukocyte Esterase Neg Edie/uL (Negative) 05/24/18 11:40 Urine RBC (Auto) 4 /hpf (0-3) H 05/24/18 11:40 Urine Microscopic WBC < 1 /hpf (0-5) 05/24/18 11:40 Ur Squamous Epith Cells < 1 /hpf (0-5) 05/20/18 16:57 Calcium Oxalate Crystal Occ /hpf (<OCC) H 05/20/18 16:57 Urine Bacteria Rare (<OCC) 05/20/18 16:57 Hyaline Casts 0-2 /hpf (0-2) 05/20/18 16:57 Influenza Typ A,B (EIA) Negative for flu a/b (NEGATIVE) 05/20/18 17:00 Blood Type A POSITIVE 05/20/18 17:00 Blood Type Confirm A POSITIVE 05/20/18 22:27 Antibody Screen Negative 05/20/18 17:00 BBK History Checked No verified bt 05/20/18 17:00 - Hospital Course Hospital Course: 58 year old female with PMHx hypothyroidism; admitted on 05/20/18 for RUQ pain secondary to acute cholecystitis. Patient had laparoscopic cholecystectomy on 05/22/18, had developed fever on POD 1 and POD 2. Patient's blood culture x 2 negative after 48 hours. Patient chest x-ray shows B/L bibasilar atelectasis. Patient received zosyn 3.375 mg q6 since the admission. Today, patient reports she is feeling better. Denies any chest pain, dyspnea, headache, dizziness, abdominal pain, nausea, vomiting, fever or chills. Patient had BM yesterday and tolerating PO. Patient is hemodynamically stable to discharge home with f/u Dr. Christine within one week and has follow up appointment with Dr. Farr on 05/29/18 at 11:20 am. Medications: Ciprofloxacin [Cipro] 500 mg PO Q12 #8 tab Levothyroxine [Synthroid] 50 mcg PO DAILY #30 tab metroNIDAZOLE [Flagyl] 500 mg PO Q8 #12 tab Discharge Exam - Head Exam Head Exam: ATRAUMATIC, NORMAL INSPECTION - Eye Exam Eye Exam: Normal appearance - ENT Exam ENT Exam: Mucous Membranes Moist - Respiratory Exam Respiratory Exam: Clear to PA & Lateral, NORMAL BREATHING PATTERN. absent: Rales, Wheezes, Respiratory Distress - Cardiovascular Exam Cardiovascular Exam: REGULAR RHYTHM, +S1, +S2 - GI/Abdominal Exam GI & Abdominal Exam: Normal Bowel Sounds, Soft. absent: Tenderness Additional comments: +erythema surrounding umbilical incision (improving). No oozing or discharge. RUQ incision has minimal erythema (improving). - Neurological Exam Neurological exam: Alert, Oriented x3 - Psychiatric Exam Psychiatric exam: Normal Affect, Normal Mood - Skin Skin Exam: Normal Color Discharge Plan - Discharge Medications Prescriptions: Ciprofloxacin [Cipro] 500 mg PO Q12 #8 tab Levothyroxine [Synthroid] 50 mcg PO DAILY #30 tab metroNIDAZOLE [Flagyl] 500 mg PO Q8 #12 tab - Follow Up Plan Condition: FAIR Disposition: HOME/ ROUTINE Instructions: Cholecystectomy (DC) Additional Instructions: Please follow up with Dr. Farr on 05/29/18 at 11: 20 am Follow up with Dr. Christine within one week. You make take ibuprofen 600 mg every 8 hours for pain as needed with food. Referrals: Cam Christine MD [Staff Provider] - [facility] [Provider Group]
[2018-05-25 16:06] VITALS: BP 156/75; PULSE 77; TEMP 97.9; O2SAT 93
--- NOTE | 2018-05-27 01:03 | OP ---
PROCEDURE DATE: 05/22/2018 PROCEDURE: Laparoscopic cholecystectomy. PREOPERATIVE DIAGNOSIS: Acute cholecystitis. POSTOPERATIVE DIAGNOSIS: Acute cholecystitis. SURGEON: Cam Christine MD ASSISTANTS: Bishop Narvaez DO, PGY-3; Rajesh Wallace DO, PGY-2. ANESTHESIOLOGIST: Jalen Hansen MD ANESTHESIA: General anesthesia. INDICATIONS: Mrs. Leanna Dominguez is a very nice 58-year-old female who initially came in after being referred by her primary care physician to the emergency room after she had been complaining of right upper quadrant pain. Once evaluated in the emergency department, an abdominal ultrasound was done which showed gallbladder thickening as well as stones, at which point, the decision was made to take the patient to the operating room for a laparoscopic cholecystectomy. DESCRIPTION OF PROCEDURE: The patient was brought to the operating room where surgical safety checklist was performed. Preoperatively, the patient was on IV Zosyn. General anesthesia was induced. In supine position, the abdomen was prepped and draped in a sterile fashion. An infraumbilical midline incision was made and carried down to the fascia which was divided exposing the peritoneal cavity. A closed technique was used to enter the peritoneal cavity via Veress needle, and it was used to establish pneumoperitoneum. The laparoscope was then inserted via Visiport into the abdomen. Subsequently, the following ports were inserted under direct visualization in a typical fashion. A 5-mm epigastric port as well as two 5-mm ports were placed along the right costal margin. The peritoneal cavity was inspected, and no abnormalities were found. The patient was then placed in reverse Trendelenburg position with right side up. Omental attachments to the gallbladder were gently swept away until an atraumatic grasper could be used to retract the fundus of the gallbladder superiorly over the dome of the liver. The gallbladder was found to be quite enlarged. Filmy adhesions between the gallbladder and omentum were lysed sharply. The infundibulum was then identified and subsequently retracted laterally towards the right lower quadrant using another grasper. This maneuver exposed Calot's triangle very nicely. The peritoneum overlying the gallbladder and infundibulum was incised with electrocautery anteriorly. Then, the posterior peritoneum was dissected. The triangle was dissected to expose the cystic duct, lymph node, cystic artery, the cystic plate as well as the cystic . Once the structures were carefully identified, the cystic artery was divided first. Then, further dissection of the triangle was completed. Once it was determined that the only structure remaining entering the gallbladder was the cystic duct, it was doubly clipped and divided. The electrocautery was then used to separate the peritoneal attachments between the gallbladder and its bed and the liver. The gallbladder fossa and cystic artery were inspected to ensure no bleeding. Hemostasis was achieved with electrocautery. There was no leakage of bile from the cystic duct stump. The gallbladder once freed was easily removed from the abdomen to the infraumbilical port, this specimen was then sent to pathology. The fascia at the infraumbilical port was approximated using 0 Vicryl sutures in a [id number] fashion. All incisions were closed using 4-0 Biosyn sutures in an interrupted manner via subcuticular fashion. The operative field was cleaned and dried, and Dermabond was applied to all 4 incisions. There were no intraoperative complications, and the estimated blood loss for the procedure was 10 mL total. All instrument and sponge counts were correct. A surgical debriefing was then performed. The patient was extubated and transferred to PACU in stable condition. Bishop Narvaez DO Cam Christine MD
--- NOTE | 2018-05-27 10:16 | PQF ---
PROVIDER RESPONSE TEXT: Atelectasis and pleural effusion Its not post procedural complication REVIEWER QUERY TEXT: Postoperative Relationship Clarification COULD YOU PLEASE CLARIFY IF THE PATIENT'S ATELECTASIS AND PLEURAL EFFUSION WAS A POST PROCEDURAL COM PLICATION. Please clarify the term ?post operative? related to the documented condition in the Medical Record Such as: -- Condition is a complication of surgery -- Condition occurred in the post operative period, cause documented (please specify cause) -- Condition occurred in the post operative period, cause clinically unable to be determined -- Condition is incidental to surgery -- Other, please specify Documentation indicators that raised basis for question: 05/24 CHEST X RAY B/L BIBASILAR ATELECTASIS WITH SMALL B/L PLEURAL EFFUSION, PATIENT DEVELOPED POST OP FEVER TEMP 102. Query created by: Halima Nava on 05/26/2018 4:37 PM Electronically signed by: Renata Winston 05/27/2018 10:12 AM
== END 2018-05-25 17:25 | disposition home or self-care (01) | DRG 493 ==
LOC: H.ER 15:24 → H.ERHOLD 23:57 → H.MEDSURG1 05-21 02:07
PROVIDERS: ADMIT Internal Medicine; ATTEND Internal Medicine
PROC: 0FT44ZZ Resection of Gallbladder, Percutaneous Endoscopic Approach (ICD-10-PCS; principal; 2018-05-22 07:45)
DX: K80.12 Calculus of gallbladder with acute and chronic cholecystitis without obstruction (principal); J98.11 Atelectasis; J90 Pleural effusion, not elsewhere classified; E03.9 Hypothyroidism, unspecified; K59.00 Constipation, unspecified; K52.9 Noninfective gastroenteritis and colitis, unspecified; R50.82 Postprocedural fever; Z87.891 Personal history of nicotine dependence; R05 Cough; R63.0 Anorexia